=== PATIENT | female | born 1940 | race Caucasian/White ===

== ENCOUNTER 2024-03-07 12:36 | Outpatient (AMB) | payer MEDICARE, SELFPAY ==
--- NOTE | 2024-03-07 13:24 | A.OFFVIS_ITS ---
Vital Signs 03/07/24 13:25 Height 5 ft 2 in Weight 126 lb BMI 23.0 BP 118/64 Blood Pressure Location Lt brachial Position Sitting Pulse 64 Pulse Source Pulse Oximeter Pulse Oximetry (%) 97 Oxygen Delivery Method Room Air Intake Visit Reasons: Follow up Intake Note: Patient presents for follow up on osteoarthritis. Accompanied by: Health Care Proxy Allergies Penicillins Allergy (Intermediate, Verified 03/07/24 13:30) Anaphylaxis NSAIDS (Non-Steroidal Anti-Inflamma Allergy (Mild, Verified 03/07/24 13:30) rasie blood pressure HPI HPI Follow up: Details: Last week patient had a fall in her home. She fell on her left side. Her face did hit the ground. She has a bruise on her chin. She continues to have lower back pain and left-sided hip pain worse than right side. She has difficulty walking. In July she had an ER admission after fall and a period of confusion. She was found to have a UTI. She was discharged to rehab and then was readmitted. Eventually she went to rehab again where she received physical therapy, OT and discharge to home with services. She received home physical therapy for 6 weeks. She feels weak. She has a hard time ambulating with walker. She requires assistance when getting up from seated position. She is unable to get up by herself. She continues to have chronic left shoulder pain with limited range of motion. She has history of rotator cuff tendon tear. She went to physical therapy in the past. She has not been consistent with doing exercises at home. Review of Systems Const All systems reviewed & are unremarkable except as noted in HPI and below Physical Exam Vital Signs: Last Vital Signs Pulse 64 03/07/24 13:25 BP 118/64 03/07/24 13:25 Pulse Ox 97 03/07/24 13:25 Oxygen Delivery Method Room Air 03/07/24 13:25 BMI result Body Mass Index 23.0 Const Other: General: Comfortable Skin: No lesions seen MSK: Tender to palpate left shoulder. Abduction of left shoulder 30 degrees. She has limited internal external rotation both actively and passively. Tender to palpate left lower paraspinal muscles. No lumbar spinous process tenderness. Limited lumbar flexion. Tenderness along right knee joint line. Crepitus palpated right knee. Knee flexion is limited to 60 degrees. She has limited external rotation of bilateral hips. Assessment & Plan Assessment & Plan (1) Frequent falls: Comment: She recently had a fall a week ago landing on her left side. She continues to have lower back pain. Myofascial strain is contributing. We will obtain x-rays of her L-spine and pelvis to ensure there is no fracture. I recommended physical therapy for strengthening. Code(s): R29.6 - Repeated falls Category: Medical Plan: X-rays L-spine and pelvis ordered. Patient prefers to have x-rays done locally PT ordered. Patient prefers to have physical therapy at [facility] and [place], [place] Apply heat to back at least twice a day Continue to use Tylenol as needed Apply lidocaine patch daily Return to clinic in 3 months (2) Low back pain: Comment: Acute on chronic. Myofascial strain is contributing. Code(s): M54.50 - Low back pain, unspecified Category: Medical Qualifiers: Back pain laterality: bilateral Chronicity: acute Sciatica presence: without sciatica Qualified Code(s): M54.50 - Low back pain, unspecified Plan: See above (3) Left shoulder pain: Comment: With history of rotator cuff tendinopathy and limited range of motion. I we will further workup to determine the extent of osteoarthritis contributing to limited range of motion and shoulder pain. She has agreed to do physical therapy. Code(s): M25.512 - Pain in left shoulder Category: Medical Qualifiers: Chronicity: chronic Qualified Code(s): M25.512 - Pain in left shoulder; G89.29 - Other chronic pain Plan: X-ray left shoulder ordered. Patient prefers to have x-rays done locally Physical therapy ordered. Patient prefers to have physical therapy in [place], [place] at [facility]. Return to clinic in 3 months Orders: Orders XR lumbar spine 2-3V Today M54.50 - Low back pain, unspecified, R29.6 - Repeated falls PT Evaluation and Treatment Today M54.50 - Low back pain, unspecified, R29.6 - Repeated falls XR shoulder LT min 2V Today M25.512 - Pain in left shoulder XR knee RT 2V Today M17.0 - Bilateral primary osteoarthritis of knee XR pelvis 1-2V Today M54.50 - Low back pain, unspecified Medications: New leg brace (Knee Support Brace) As directed Right knee hinged brace Dx: osteoarthritis 1 ea 0RF Coding Level of Care Code Est Pt Level 4 (50577) Complex EM visit Add On G2211 Diagnoses Frequent falls R29.6 Acute bilateral low back pain without sciatica M54.50 Back pain laterality: bilateral Chronicity: acute Sciatica presence: without sciatica Chronic left shoulder pain M25.512; G89.29 Chronicity: chronic
[2024-03-07 13:25] VITALS: BP 118/64; PULSE 64; O2SAT 97; BMI 23.0
== END 2024-03-07 13:47 | disposition home or self-care (01) ==
PROVIDERS: PCP Internal Medicine; Visit Provider Internal Medicine Rheumatology
DX: R29.6 Repeated falls (principal); M54.50 Low back pain, unspecified; M25.512 Pain in left shoulder; G89.29 Other chronic pain
CPT/HCPCS: 99214; G2211

== ENCOUNTER → 2024-03-07 12:36 | Outpatient (BNVA) | payer MEDICARE, SELFPAY | PROVIDERS: PCP Internal Medicine; Visit Provider Internal Medicine Rheumatology | DX: R29.6 Repeated falls (principal); M25.512 Pain in left shoulder; M54.50 Low back pain, unspecified; G89.29 Other chronic pain | CPT/HCPCS: 99212 ==

== ENCOUNTER 2024-06-06 13:04 | Outpatient (AMB) | payer MEDICARE, SELFPAY ==
--- NOTE | 2024-06-06 13:08 | MHC.OFFVIS ---
Vital Signs 06/06/24 13:17 Height 5 ft 2 in BP 120/60 Blood Pressure Location Lt brachial Position Sitting Pulse 63 Pulse Source Pulse Oximeter Pulse Oximetry (%) 98 Oxygen Delivery Method Room Air Intake Visit Reasons: 3 mo follow up Intake Note: Patient presents today for follow up on arthralgia today. Accompanied by: sister in law Allergies Penicillins Allergy (Intermediate, Verified 06/06/24 13:16) Anaphylaxis NSAIDS (Non-Steroidal Anti-Inflamma Allergy (Mild, Verified 06/06/24 13:16) rasie blood pressure HPI HPI 3 mo follow up: Details: left elbow pain started a month ago. Worse after sleeping on left side. She feels weaker. She is having a hard time lifting her legs when walking. She is very tired. She is waking up every hour to urinate. When she is tired it affects her speech. History of lacunar infarcts. In the past she saw urologist KALA who recommended 3 options of medications but patient did not pursue any of them. She continues to have left shoulder pain and back pain. She does exercises with her upper extremities with weights every day. Review of Systems Const All systems reviewed & are unremarkable except as noted in HPI and below Physical Exam Vital Signs: Last Vital Signs Pulse 63 06/06/24 13:17 BP 120/60 06/06/24 13:17 Pulse Ox 98 06/06/24 13:17 Oxygen Delivery Method Room Air 06/06/24 13:17 Const Other: General: Comfortable Skin: No lesions seen MSK: Tender to palpate left shoulder. Abduction of left shoulder 30 degrees actively. Passive abduction of left shoulder is 45 degrees. She has limited internal external rotation both actively and passively. Tender to palpate left lateral elbow. No tender to palpate lateral epicondyle or medial epicondyle. No olecranon bursitis present. No elbow effusion present. Normal range of motion of left elbow. Assessment & Plan Assessment & Plan (1) Frequent falls: Comment: She continues to have lower back pain. On exam from last visit she had paraspinal muscle strain contributing. She has not done x-rays ordered last visit Code(s): R29.6 - Repeated falls Category: Medical Plan: X-rays L-spine and pelvis ordered last visit. Patient prefers to have x-rays done locally. I recommend that she have x-rays done after this visit. Patient agrees with plan. Continue physical therapy Apply heat to back at least twice a day Continue to use Tylenol as needed. History of baseline transaminitis being monitored by PCP per patient. Apply lidocaine patch daily Patient had concerns that were raised by physical therapy about the possibility of her having Parkinson's disease. I recommended that she discuss the weakness that she is experiencing with PCP with consideration of reordering brain imaging and the possibility of consultation with Neurology with movement disorder specialist. She would also benefit from geriatric consultation. Uncontrolled urinary incontinence (nocturia frequency Q 1 hourly at night) is contributing to fatigue, which is a risk factor for her falling as she feels very sleepy during the day. I recommend urogynecology evaluation. She will further discuss with PCP. Return to clinic in 3 months (2) Left shoulder pain: Comment: With history of rotator cuff tendinopathy and limited range of motion. She has a left frozen shoulder. Code(s): M25.512 - Pain in left shoulder Category: Medical Qualifiers: Chronicity: chronic Qualified Code(s): M25.512 - Pain in left shoulder; G89.29 - Other chronic pain Plan: X-ray left shoulder ordered last visit. Patient prefers to have x-rays done locally. I encouraged her to have x-rays done after this visit Continue exercises at home daily. In the past she had exercise home program with bands. I recommend that she start exercising with bands to try to improve her range of motion. If she continues to have limited range of motion next visit, I will treat with cortisone injection Return to clinic in 3 months (3) Elbow pain, left: Comment: Onset 1 month ago occurring daily, worse when she sleeps on left side. Normal range of motion. Discussed conservative management Code(s): M25.522 - Pain in left elbow Category: Medical Plan: Obtaining baseline LFTs and creatinine. I recommend that she try diclofenac gel 1% applied to affected area every 4-6 hours. She has history of transaminitis. We discussed the rare risk of diclofenac gel increasing liver enzymes. I will monitor her LFTs while she uses diclofenac gel. We discussed risks and benefits of diclofenac gel including the low risk of it contributing to hypertension due to low risk of systemic absorption. Return to clinic in 3 months Orders: Orders Creatinine Today G89.29 - Other chronic pain, M25.512 - Pain in left shoulder Liver Panel Today G89.29 - Other chronic pain, M25.512 - Pain in left shoulder Medications: New diclofenac sodium 1% apply to affected area every 4-6 hours PRN pain 2 grams topical QID PRN 100 grams 2RF pain Coding Level of Care Code Est Pt Level 4 (15131) Complex EM visit Add On G2211 Diagnoses Frequent falls R29.6 Chronic left shoulder pain M25.512; G89.29 Chronicity: chronic Elbow pain, left M25.522 Time Spent (min) 30
[2024-06-06 13:17] VITALS: BP 120/60; PULSE 63; O2SAT 98
--- OUTSIDE RECORDS SUMMARY | 2024-06-06 15:22 | XMS_ITS | Patient Health Record ---
Author Organization [facility] Address [address] [facility] [address] [place] [address] Care Team Providers Care Cloth Sander Name Role Phone Diogenes Medeiros Primary Care Provider Unavailabl e Allergies Allergen (clinical drug ingredient) Drug/Non Drug Allergy documented on EMR Reaction Allergy Type Onset Date Status amlodipine / atorvastatin amLODIPine-Atorvastat in Unknown Drug Allergy Active celecoxib CeleBREX Unknown Drug Allergy Active atorvastatin Lipitor Unknown Drug Allergy Acti ve lisinopril Lisinopril Unknown Drug Allergy Activ e Substance with 5-hvffqwu-8-methylglutar yl-coenzyme A reductase inhibitor mechanism of action (substance) Statins Unknown Drug Allergy Active metoprolol Metoprolol Unknown Drug Allergy Activ e Penicillin Unknown Drug Allergy Active verapamil Verapamil Unknown Drug Allergy Active Reason For Referral No Information Medications Medication SIG (Take, Route, Frequency, Duration) Notes Start Date End Date Status Carvedilol 3.125 MG 1 tablet with food Orally Twice a day Active Aspirin 81 81 MG 1 tablet Orally Once a day Active Scopolamine 1 MG/3DAYS 1 patch to skin behind the ear as needed Transdermal Not-Taking Citracal + D Active Pravastatin Sodium 20 MG 1 tablet Orally Once a day Not-Taking Fish Oil 500 MG 1 capsule Orally Twice a day Active hydroCHLOROthiazide 12.5 MG 1 tablet in the morning Orally Once a day Active ICaps Areds 2 Active Levothyroxine Sodium 75 MCG 1 tablet in the morning on an empty stomach Orally Once a day Active Losartan Potassium 25 MG 1 tablet Orally Once a day Active Multivitamin - 1 tablet Orally Once a day Active Nitroglycerin 0.4 MG as directed Sublingual Active Problems Problem Type SNOMED Code ICD Code Onset Dates Problem Status W/U Status Risk Notes Problem [id number] Hallux valgus (acquired), right foot (M20.11) Active confirmed Problem [id number] Hallux valgus (acquired), left foot (M20.12) Active confirmed Problem [id number] Acquired left foot drop (M21.372) Active confirmed Problem 54491270 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 Plan Of Treatment No Information Insurance Providers Payer Name Payer Address Payer Phone Subscriber Number Group Number Insured Name Patient Relationship to Insured Coverage Start Date Coverage End Date Medicare of [place] [address] [place] [phone] [id number] Talita Torrez Self - patient is the insured [employer] [address] [place] [address] [phone] [id number] Talita Torrez Self - patient is the insured Medical (General) History Medical History History ICD Code Bilateral Cataracts Breast Calcification Coronary Artery Disease Degenerative Disc Disease Absorptiometry Ectopic Atrial Beats Ectopic Beats Kaye's Disease w/ Hypothyroidism Hypertension Lacunar Infarction 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
--- OUTSIDE RECORDS SUMMARY | 2024-06-06 15:22 | XMS_ITS | Clinical Summary ---
Author Organization [facility] [address] [facility] Address [address] [place] [address] Phone Care Team Providers Care Freight Associate Name Role Phone Diogenes Medeiros MD Primary Care Provider Allergies No known active allergies Active Problems Problem Noted Date Diagnosed Date Gastritis 02/21/2024 Social History Tobacco Use Types Packs/Day Years Used Date Smoking Tobacco: Never Assessed Comments Unknown Sex and Gender Information Value Date Recorded Sex Assigned at Not on file Legal Sex Female 3:40 PM EDT Gender Identity Not on file Sexual Orientation Not on file Plan of Treatment Health Maintenance Due Date Last Done Comments DTaP,Tdap,and Td Vaccines (1 - Tdap) [birth year]09/1959 Pneumococcal Vaccine: 50+ Ye ars (1 of 1 - PCV) 1990 Zoster Vaccines (1 of 2) 1990 RSV Immunization Adult Patie nts (1 - 1-dose 75+ series) 12/09/2015 COVID-19 Vaccine ( - 2023-2 5 season) 2023 Depression Screening 11/29/2023 Falls Risk Assessment 11/29/2023 Medicare Annual Wellness Visit 11/29/2023 Osteoporosis Screening (Bone Density Screening) 11/29/2023 Social Influencers of Health Screening 11/29/2023 Influenza Vaccine (Season Ended) 2024 HIB Vaccines Aged Out No longer eligi ble based on patient's age to complete this topic HPV Vaccines Aged Out No longer eligi ble based on patient's age to complete this topic Hepatitis A Vaccines Aged Out No long er eligible based on patient's age to complete this topic Hepatitis B Vaccines Aged Out No long er eligible based on patient's age to complete this topic IPV Vaccines Aged Out No longer eligi ble based on patient's age to complete this topic MMR Vaccines Aged Out No longer eligi ble based on patient's age to complete this topic Meningococcal ACWY Vaccine Aged Out N o longer eligible based on patient's age to complete this topic Meningococcal B Vaccine Aged Out No l onger eligible based on patient's age to complete this topic RSV Immunization Patients Un carolyn 20 months Aged Out No longer eligible b ased on patient's age to complete this topic Varicella Vaccines Aged Out No longer eligible based on patient's age to complete this topic Insurance MEDICARE Care Teams Freight Associate Relationship Specialty Start Date End Date Diogenes Medeiros MD [address] [place] [id number] PCP - General Internal Medicine 02/19/24
--- OUTSIDE RECORDS SUMMARY | 2024-06-06 15:22 | XMS_ITS | Encounter Summary ---
Author Organization [facility] Address [address] [place] [phone] Care Team Providers Care Casket Liner Name Role Phone Fitz Cruz MD Primary Care Provider [phone] Encounter Details Date Type Department Care Team (Late st Contact Info) Description 05/06/2014 Scanned Document [facility] [address] [place] [address] Sascha Gerber MD [address] [place] [phone] Social History Tobacco Use Types Packs/Day Years Used Date Smoking Tobacco: Former Alcohol Use Standard Drinks/Week Comments No 0 (1 standard drink = 0.6 oz pur e alcohol) Comments Unknown Sex and Gender Information Value Date Recorded Sex Assigned at Not on file Legal Sex Female 2:43 AM EDT Gender Identity Not on file Sexual Orientation Not on file documented as of this encounter Plan of Treatment Not on file documented as of this encounter Procedures Procedure Name Priority Date/Time Associated Diagnosis Comments COLONOSCOPY (IMAGES) Routine 04/07/2014 documented in this encounter Results * Colonoscopy (04/07/2014) Sascha Gerber MD GI PROCEDURE ORDERABLES Final Re sult documented in this encounter Visit Diagnoses Not on filedocumented in this encounter Care Teams Casket Liner Relationship Specialty Start Date End Date Fitz Cruz MD [address] [place] [address] [place] [address] PCP - General Internal Medicine 11/04/16 04/09/17 documented as of this encounter
--- OUTSIDE RECORDS SUMMARY | 2024-06-06 15:22 | XMS_ITS | Encounter Summary ---
Author Organization [facility] Address [address] [place] [phone] Care Team Providers Care Agricultural Research Engineer Name Role Phone Fitz Cruz MD Primary Care Provider [phone] Encounter Details Date Type Department Care Team (Late st Contact Info) Description 01/17/2017 Scanned Document [facility]. [address] [address] External, Provider Social History Tobacco Use Types Packs/Day Years Used Date Smoking Tobacco: Former Smokeless Tobacco: Never Alcohol Use Standard Drinks/Week Comments No 0 (1 standard drink = 0.6 oz pur e alcohol) Comments No Sex and Gender Information Value Date Recorded Sex Assigned at Not on file Legal Sex Female 2:43 AM EDT Gender Identity Not on file Sexual Orientation Not on file documented as of this encounter Plan of Treatment Not on file documented as of this encounter Visit Diagnoses Not on filedocumented in this encounter Care Teams Agricultural Research Engineer Relationship Specialty Start Date End Date Fitz Cruz MD [address] [place] [phone] PCP - General Internal Medicine 11/04/16 04/09/17 documented as of this encounter
--- OUTSIDE RECORDS SUMMARY | 2024-06-06 15:22 | XMS_ITS | Clinical Summary ---
Author Organization [address] Address [address] [place] [phone] Phone Care Team Providers Care Sales Support Consultant Name Role Phone Unavailable Primary Care Provider Unavailabl e Allergies Active Allergy Reactions Criticality Noted Date Comments Amlodipine High 11/13/2013 Retain fluids Celecoxib 12/10/2012 Lisinopril 01/22/2016 Metoprolol Tartrate Nausea Low 08/04/2013 Nsaids (Non-Steroidal Anti-Inflammatory Drug) 12/10/2012 Penicillins Anaphylaxis High 07/06/2012 Stljveu-Mrk-Aeu Reductase Inhibitors Medium 11/13/2013 Muscle pain-cramping Medications aspirin 81 MG EC tablet Take 81 mg by mouth daily. Active acetaminophen (TYLENOL) 500 MG tablet Take 1,000 mg by mouth 2 (two) times daily as needed (tendonitis pain). Active fish oil-omega-3 fatty acids 1,000 mg capsule Take 1 g by mouth daily. Active PYRIDOXINE HCL (VITAMIN B-6 ORAL) Take 1 tablet by mouth daily. Active multivitamin (MULTIVITAMIN) tablet Take 1 tablet by mouth daily. Active acetaminophen (TYLENOL 8 HOUR) 650 MG TbSR Take by mouth. prn Active ezetimibe (ZETIA) 10 mg tablet Take 1 tablet (10 mg total) by mouth daily. 90 tablet 3 6 Active levothyroxine (SYNTHROID, LEVOTHROID) 75 MCG tabletIndications:H ypothyroid Take 1 tablet (75 mcg total) by mouth daily. 90 tablet 2 7 Active rosuvastatin (CRESTOR) 10 MG tabletIndications:H yperlipidemia, unspecified hyperlipidemia type Take 10 mg once a week 90 tablet 3 7 Active verapamil (VERELAN PM) 180 MG 24 hr capsule Take 1 capsule (180 mg total) by mouth nightly.. 30 capsule 2 7 Active hydroCHLOROthiazide (HYDRODIURIL) 12.5 MG tablet Take 1 tablet (12.5 mg total) by mouth daily.. 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 Syncope and collapse 09/25/2015 Hyperlipidemia 01/15/2014 Overview (01/22/2016): Severe myalgias with atorvastatin, pravastatin, simvastatin and lovastatin HTN (hypertension) 08/19/2013 Overview (09/25/2015): 08/05/2013 Pharm MPI: no ischemia; normal LV function 08/06/2013 Echo: normal LV function, no valvular disease Resolved Problems Problem Noted Date Diagnosed Date Resolved Date SOB (shortness of breath) 08/04/2013 Elevated troponin 08/04/2013 09/25/2015 Immunizations Name Administration Dates Next Due Influenza, high-dose, split virus, trivalent,(65Yr+),injectable, preservative free 12/18/2015 Pneumococcal conjugate PCV 13 11/26/2014 Pneumococcal polysaccharide PPSV23 01/15/2014 Tdap 01/26/2015 Family History Medical History Relation Name Comments Heart disease Father Stroke Maternal Aunt Heart disease Maternal Cousin CO Hypertension Mother Stroke Mother Cancer Paternal Grandmother breast cancer Hypertension Sister 1 Hypertension Sister 2 Relation Name Status Comments Father (Age 64) CO Maternal Aunt Maternal Cousin Alive Mother (Age 88) Paternal Grandmother Sister 1 Alive Sister 2 Alive Social History Tobacco Use Types Packs/Day Years Used Date Smoking Tobacco: Former Smokeless Tobacco: Never Alcohol Use Standard Drinks/Week Comments No 0 (1 standard drink = 0.6 oz pur e alcohol) Comments No Sex and Gender Information Value Date Recorded Sex Assigned at Not on file Legal Sex Female 2:43 AM EDT Gender Identity Not on file Sexual Orientation Not on file Last Filed Vital Signs Vital Sign Reading Time Taken Comments Blood Pressure 164/86 11/28/2016 12:27 PM EDT Pulse 92 11/28/2016 12:27 PM EDT Temperature 36.9 ??C (98.4 ??F) 12/18/2015 9:02 AM ED T Respiratory Rate 20 01/22/2016 10:51 AM EST Oxygen Saturation 97% 12/18/2015 9:02 AM EDT Inhaled Oxygen Concentration - - Weight 76.7 kg (169 lb) 11/28/2016 12:25 PM EDT Height 157.5 cm (5' 2 ) 11/28/2016 12:25 PM EDT Body Mass Index 30.91 11/28/2016 12:25 PM EDT Plan of Treatment Health Maintenance Due Date Last Done Comments HIV screening 1953 Shingles vaccine (Shingrix) (1 of 2 - Shingrix (RZV) 2 Dose Standard Series) 1990 RSV Immunization (1 - 1-dose 75+ series) 12/09/2015 Lipid disorder screening 06/30/2017 017, 01/08/2016, 12/04/2015, Additional history exists Diabetes screening 07/16/2018 07/17/2015, 0 06/27/2015, 03/07/2014, Additional history exists Covid-19 vaccine series ( season) 2023 Influenza vaccine 10/14/2024 12/18/2015, (Patient declined) Tetanus adult (Td q 10,TDAP once) 01/26/2025 01/26/2015 Osteoporosis screening (bone density) Addressed 01/17/2014 Overridden with the intention of not completing the topic Pneumococcal Vaccine (50+ years) Completed 11/26/2014, 01/15/2014 Breast cancer screening Discontinued 03/16/2015, 01/17 Cervical cancer screening Discontinued Meningococcal Vaccine Aged Out No pretty jenna eligible based on patient's age to complete this topic Procedures Procedure Name Priority Date/Time Associated Diagnosis Comments LIPID PANEL Routine 06/30/2016 9:35 AM EDT Hyperlipidemia, unspecified hyperlipidemia type COMPREHENSIVE METABOLIC PANEL STAT 07/17/2015 1:57 PM EDT from Last 3 Months or Most Recently Relevant to Health Maintenance Results * (ABNORMAL) Lipid panel (06/30/2016 9:35 AM EDT) [facility] Cholesterol 264(H) See Comment mg/dL 06/30/2016 12:46 PM EDT [facility] Comment: Total Cholesterol (mg/dL) ?Adults (>18 years) ? Children (<18 years) Desirable ?<200 ? <170 Borderline-High ?200-239 ?170-199 High ? >=240 ?>=200 ? HDL 45 >=40 mg/dL 06/30/2016 12:46 PM EDT [facility] Triglycerides 284(H) See Comment mg/dL 06/30/2016 12:46 PM EDT [facility] Comment: Triglycerides (mg/dL) ?Adults (>18 years) ? Children (<18 years) Desirable ?<150 ? Not Established Borderline-High ?150-199 ?Not Established High ? 200-499 ?Not Established ?? Chol/HDL Ratio 5.9(H) <=5 06/30/2016 [facility] LDL Calculated 162(H) See Comment mg/dL 06/30/2016 12:46 PM [facility] Comment: LDL Cholesterol (mg/dL) ?Adults (>18 years) ? Children (<18 years) Desirable ?<100 ? <110 Above Desirable ?100-129 ?Not Established Borderline-High ?130-159 ?110- 129 High ? 160-189 ?>=130 Very High? >=190 ? Not Established Blood specimen (specimen) Venipuncture / Unknown 06/30/2016 9:35 AM EDT 06/30/2016 9:35 AM EDT us Abdon Lepe MD LAB BLOOD ORDERABLES Final Result Performing Organization Address [facility]/State/[facility] Co de Phone Number [facility] [address] [place] [address], [facility] [phone] * (ABNORMAL) Comprehensive metabolic panel (07/17/2015 1:57 PM EDT) Glucose 132(H) 70 - 100 mg/dL [facility] BUN 18 7 - 20 mg/dL [facility] Creatinine 0.9 0.5 - 1.2 mg/dL [facility] Anion Gap 18(H) 7 - 16 [facility] CO2 23.5 22.0 - 30.0 mmol/L [facility] Chloride 95(L) 96 - 106 mmol/L [facility] Sodium 136 135 - 145 mmol/L [facility] Potassium 4.6 3.3 - 5.0 mmol/L [facility] Calcium 9.9 8.8 - 10.2 mg/dL [facility] Total Protein 7.1 6.0 - 8.3 g/dL [facility] Albumin 3.8 3.5 - 5.0 g/dL [facility] Globulin 3.3 2.3 - 3.5 g/dL [facility] A/G Ratio 1.2 1.0 - 2.2 [facility] Aspartate Aminotransferase (AST) 22 0 - 34 U/L [facility] Alanine Aminotransferase (ALT) 16 0 - 34 U/L [facility] Alkaline Phosphatase 77 30 - 130 U/L [facility] Total Bilirubin 0.28 <1.20 mg/dL [facility] Blood specimen (specimen) 07/17/2015 1:57 PM EDT Ines Benjamin MD LAB BLOOD ORDERABLES Final R esult [facility] [address] [place] [phone] from Last 3 Months or Most Recently Relevant to Health Maintenance Insurance MEDICARE [facility] MEDICARE [facility] MEDICARE [facility] MEDICARE [facility]
--- OUTSIDE RECORDS SUMMARY | 2024-06-06 15:23 | XMS_ITS | Patient Health Record ---
Author Organization [facility] Address [address] [place] [address] Care Team Providers Care Senior Revenue Accountant Name Role Phone JV MURILLO M.D. Primary Care Provider U hangsofiaLucita Moody Unavailable [phone] Allergies Allergen (clinical drug ingredient) Drug/Non Drug Allergy documented on EMR Reaction Allergy Type Onset Date Status amlodipine Amlodipine Besylate Swelling Drug Allergy Active Metoprolol & Diet Manage Prod Nausea Drug Allergy Active Penicillin Unknown Drug Allergy Active Substance with 7-ldycejs-3-methylgl utaryl-coenzyme A reductase inhibitor mechanism of action (substance) Statins Muscle Weakness Drug Allergy Active Reason For Referral No Information Medications Medication SIG (Take, Route, Frequency, Duration) Notes Start Date End Date Status Synthroid 75 MCG 1 Orally daily Micah-MJ 01/26/2012 Active Carvedilol 3.125 MG Orally Active Low-Dose Aspirin Act shanelle hydroCHLOROthiazide 12.5 MG Orally Active Losartan Potassium 50 MG Orally Active Social History Sexual History Question Answer Notes Had sex in the past 12 months (vaginal, oral, or anal)? No Problems Problem Type SNOMED Code ICD Code Onset Dates Problem Status W/U Status Risk Notes Problem Age-related osteoporosis (347398063) Age-related osteoporosis without current pathological fracture (M81.0) Active confirmed Problem Abnormal findings on diagnostic imaging of breast (074143073) Other abnormal and inconclusive findings on diagnostic imaging of breast (R92.8) Active confirmed Problem Hyperlipidemia (89572095) Other and unspecified hyperlipidemia (272.4) Active confirmed Major Problem Benign essential hypertension (0837706) Essential hypertension, benign (401.1) Active confirmed Major Problem Menopausal symptom (15421264) Symptomatic menopausal or female climacteric states (627.2) Active confirmed Major Problem Gynecological examination normal (118025151098721) Routine gynecological examination (V72.31) Active confirmed Major Problem Screening for malignant neoplasm of colon (642463182) Special screening for malignant neoplasms, colon (V76.51) Active confirmed Major Plan Of Treatment Pending Test Test Name Order Date 25OH VITAMIN D 06/26/2018 COMPREHENSIVE METABOLIC PANEL 06/26/2018 N-TELOPEPTIDE CROSS 06/26/2018 PTH, INTACT 06/26/2018 THIN PREP,HPV,YENI IF HPV+ (>29YR)(DIAG) 07/30/2018 TSH 06/26/2018 BONE DENSITY 07/27/2016 Insurance Providers Payer Name Payer Address Payer Phone Subscriber Number Group Number Insured Name Patient Relationship to Insured Coverage Start Date Coverage End Date MEDICARE [address] [facility] [place] [id number] GRETTA GRIFFITHS Self - patient is the insured MEDEX [address] [place] [address] [id number] GRETTA GRIFFITHS Self - patient is the insured Medical (General) History Medical History History ICD Code Hyperlipidemia, unspecified E78.5 Essential (primary) hypertension I10 Menopausal and female climacteric states N95.1 Age-related osteoporosis without current pathological fracture M81.0 Other abnormal and inconclusive findings on diagnostic imaging of breast R92.8 Disorder of bone density and structure, unspecified M85.9 Pelvic and perineal pain R10.2 Other signs and symptoms in breast N64.5 9 Surgical History Surgery Date(Month/Year) Colonoscopy Tonsillectomy Dental Implant 2017 MOS procedure Lt Hand - squamous cell re moved Hospitalization History Reason Date(Month/Year) 1 Vaginal Delivery See Surgical Hx
--- OUTSIDE RECORDS SUMMARY | 2024-06-06 15:23 | XMS_ITS | Encounter Summary ---
Author Organization [facility] Address [address] [place] [phone] Care Team Providers Care Ticket Dispenser Changer Name Role Phone Fitz Cruz MD Primary Care Provider [phone] Encounter Details Date Type Department Care Team (Late st Contact Info) Description 09/15/2015 Scanned Document Lab for [facility] [address] [place] [address] Adm/Consult, Hospitalist [address] [place] [address] Social History Tobacco Use Types Packs/Day Years [...] on filedocumented in this encounter Care Teams Ticket Dispenser Changer Relationship Specialty Start Date End Date Fitz Cruz MD 5 [facility] [address] [place] [phone] PCP - General Internal Medicine 11/04/16 04/09/17 documented as of this encounter
--- OUTSIDE RECORDS SUMMARY | 2024-06-06 15:23 | XMS_ITS | Encounter Summary ---
Author Organization [facility] Address [address] [place] [phone] Care Team Providers Care Rental Sales Associate Name Role Phone Fitz Cruz MD Primary Care Provider [phone] Reason for Referral * Imaging (Routine) - Closed Specialty Diagnoses / Procedures Referred By Contac t Referred To Contact Diagnostic Radiology Procedures CT Head wo IV Contrast [facility] [address] [address] Phone: tel: fax: Referral ID Status Reason Start Date Expiration Date Visits Re quested Visits Authorized [id number] Closed 09/17/2015 09/16/2016 1 1 Encounter Details Date Type Department Care Team (Late st Contact Info) Description 09/17/2015 Scanned Document [facility] [address] [address] ProviderBritni . Social History Tobacco Use Types Packs/Day Years [...] Procedure Name Priority Date/Time Associated Diagnosis Comments CT HEAD WO IV CONTRAST Routine 09/14/2015 XR CHEST PA AND LATERAL Routine 09/14/2015 NE CARDIAC STRESS TST,TRACING ONLY Routine 09/14/2015 BASIC METABOLIC PANEL Routine 09/14/2015 documented in this encounter Results * NE CARDIAC STRESS TST,TRACING ONLY (09/14/2015) Historical Provider [place] CARDIOVASCULAR SYSTEM SER VICES Final Result * Basic metabolic panel (09/14/2015) Blood specimen (specimen) Historical Provider LAB BLOOD ORDERABLES Final R esult [facility] * XR Chest PA and Lateral (09/14/2015) Anatomical Region Laterality Modality Chest Digital Radiogra phy [facility] Provider IMG DIAGNOSTIC IMAGING ORDER PAUL Final Result * CT Head wo IV Contrast (09/14/2015) Anatomical Region Laterality Modality Head, Ortho Head Computed Tomogr aphy Historical Provider IMG CT ORDERABLES Final Resu lt documented in this encounter Visit Diagnoses Not on filedocumented in this encounter Care Teams Rental Sales Associate Relationship Specialty Start Date End Date Fitz Cruz MD 5 [facility] [address] [place] [phone] PCP - General Internal Medicine 11/04/16 04/09/17 documented as of this encounter
--- OUTSIDE RECORDS SUMMARY | 2024-06-06 15:23 | XMS_ITS | Encounter Summary ---
Author Organization [facility] Address [address] [place] [phone] Care Team Providers Care Address Change Clerk Name Role Phone Fitz Cruz MD Primary Care Provider [phone] Encounter Details Date Type Department Care Team (Late st Contact Info) Description 01/21/2014 Scanned Document [facility] [address] [place] [phone] Priyanka Ontiveros MD [address] [place] [address] [place] [address] Social History Tobacco Use Types Packs/Day Years [...] Procedure Name Priority Date/Time Associated Diagnosis Comments BASIC METABOLIC PANEL Routine 01/13/2014 documented in this encounter Results * Basic metabolic panel (01/13/2014) Blood specimen (specimen) us Priyanka Ontiveros MD LAB BLOOD ORDERABLES Fin al Result [facility] [place], [place], [facility] documented in this encounter Visit Diagnoses Not on filedocumented in this encounter Care Teams Address Change Clerk Relationship Specialty Start Date End Date Fitz Cruz MD 5 [facility] [address] [place] [phone] PCP - General Internal Medicine 11/04/16 04/09/17 documented as of this encounter
--- OUTSIDE RECORDS SUMMARY | 2024-06-06 15:23 | XMS_ITS | Encounter Summary ---
Author Organization [facility] Address [address] [place] [phone] Care Team Providers Care It Support Analyst Name Role Phone Fitz Cruz MD Primary Care Provider [phone] Encounter Details Date Type Department Care Team (Late st Contact Info) Description 09/14/2015 Scanned Document Lab for [facility] [address] [place] [address] Adm/Consult, Hospitalist [address] [place] [phone] Social History Tobacco Use Types Packs/Day Years [...] on filedocumented in this encounter Care Teams It Support Analyst Relationship Specialty Start Date End Date Fitz Cruz MD 5 [facility] [address] [place] [phone] PCP - General Internal Medicine 11/04/16 04/09/17 documented as of this encounter
== END 2024-06-06 14:10 | disposition home or self-care (01) ==
LOC: HO.RHES 13:05
PROVIDERS: PCP Internal Medicine; Visit Provider Internal Medicine Rheumatology
DX: R29.6 Repeated falls (principal); M25.512 Pain in left shoulder; G89.29 Other chronic pain; M25.522 Pain in left elbow
CPT/HCPCS: 99214; G2211

== ENCOUNTER 2024-06-06 13:04 | Outpatient (REF) | payer MEDICARE, SELFPAY ==
--- OUTSIDE RECORDS SUMMARY | 2024-06-06 16:58 | XMS_ITS | Clinical Summary ---
Author Organization [facility] [address] [facility] Address [address] [place] [address] Phone Care Team Providers Care Mattress Filling Machine Tender Name Role Phone Diogenes Medeiros MD Primary [...] complete this topic Insurance MEDICARE Care Teams Mattress Filling Machine Tender Relationship Specialty Start Date End Date Diogenes Medeiros MD [address] [place] [phone] PCP - General Internal Medicine 02/19/24
--- OUTSIDE RECORDS SUMMARY | 2024-06-06 16:58 | XMS_ITS | Encounter Summary ---
Author Organization [facility] Address [address] [place] [phone] Care Team Providers Care Photovoltaic Installer Name Role Phone Fitz Cruz MD Primary Care Provider [phone] Encounter Details Date Type Department Care Team (Late st Contact Info) Description 09/15/2015 Scanned Document Lab for [facility] [address] [place] [address] Adm/Consult, Hospitalist [address] [place] [address] Social History Tobacco Use Types Packs/Day Years [...] on filedocumented in this encounter Care Teams Photovoltaic Installer Relationship Specialty Start Date End Date Fitz Cruz MD 5 [facility] [address] [place] [phone] PCP - General Internal Medicine 11/04/16 04/09/17 documented as of this encounter
--- OUTSIDE RECORDS SUMMARY | 2024-06-06 16:58 | XMS_ITS | Encounter Summary ---
Author Organization [facility] Address [address] [place] [phone] Care Team Providers Care Buffer Nickel Name Role Phone Fitz Cruz MD Primary Care Provider [phone] Encounter Details Date Type Department Care Team (Late st Contact Info) Description 05/06/2014 Scanned Document [facility] [address] [place] [address] Sascha Gerber MD [address] [place] [phone] Social History Tobacco Use Types Packs/Day Years [...] on filedocumented in this encounter Care Teams Buffer Nickel Relationship Specialty Start Date End Date Fitz Cruz MD [address] [place] [address] [address] [place] [phone] PCP - General Internal Medicine 11/04/16 04/09/17 documented as of this encounter
--- OUTSIDE RECORDS SUMMARY | 2024-06-06 16:58 | XMS_ITS | Encounter Summary ---
Author Organization [facility] Address [address] [place] [phone] Care Team Providers Care Apparatus Lineman Name Role Phone Fitz Cruz MD Primary Care Provider [phone] Encounter Details Date Type Department Care Team (Late st Contact Info) Description 09/14/2015 Scanned Document Lab for [facility] [address] [place] [address] Adm/Consult, Hospitalist [address] [place] [address] Social History Tobacco Use Types Packs/Day Years [...] on filedocumented in this encounter Care Teams Apparatus Lineman Relationship Specialty Start Date End Date Fitz Cruz MD 5 [facility] [address] [place] [phone] PCP - General Internal Medicine 11/04/16 04/09/17 documented as of this encounter
--- OUTSIDE RECORDS SUMMARY | 2024-06-06 16:58 | XMS_ITS | Encounter Summary ---
Author Organization [facility] Address [address] [place] [phone] Care Team Providers Care Dip Guider Stoves Name Role Phone Fitz Cruz MD Primary Care Provider [phone] Reason for Referral * Imaging (Routine) - Closed Specialty Diagnoses / Procedures Referred By Contac t Referred To Contact Diagnostic Radiology Procedures CT Head wo IV Contrast [facility] [address] [address] Phone: tel: fax: Referral ID Status Reason Start Date Expiration Date Visits Re quested Visits Authorized [id number] Closed 09/17/2015 09/16/2016 1 1 Encounter Details Date Type Department Care Team (Late st Contact Info) Description 09/17/2015 Scanned Document [facility] [address] [address] ProviderBritni . Social History Tobacco Use Types [...] XR CHEST PA AND LATERAL Routine 09/14/2015 [place] CARDIAC STRESS TST,TRACING ONLY Routine 09/14/2015 BASIC METABOLIC PANEL Routine 09/14/2015 documented in this encounter Results * [place] CARDIAC STRESS TST,TRACING ONLY (09/14/2015) Historical Provider [place] CARDIOVASCULAR SYSTEM SER VICES Final Result * Basic metabolic panel (09/14/2015) Blood specimen (specimen) Historical Provider LAB BLOOD ORDERABLES Final R esult [facility] * XR Chest PA and Lateral (09/14/2015) Anatomical Region Laterality Modality Chest Digital Radiogra phy [facility] Provider IMG DIAGNOSTIC IMAGING ORDER PAUL Final Result * CT Head wo IV Contrast (09/14/2015) Anatomical Region Laterality Modality Head, Ortho Head Computed Tomogr aphy Historical Provider IMG CT ORDERABLES Final Resu lt documented in this encounter Visit Diagnoses Not on filedocumented in this encounter Care Teams Dip Guider Stoves Relationship Specialty Start Date End Date Fitz Cruz MD 5 [facility] [place] [address] [place] [phone] PCP - General Internal Medicine 11/04/16 04/09/17 documented as of this encounter
--- OUTSIDE RECORDS SUMMARY | 2024-06-06 16:58 | XMS_ITS | Clinical Summary ---
Author Organization [address] Address [address] [place] [phone] Phone Care Team Providers Care Design Engineer Name Role Phone Unavailable Primary Care Provider Unavailabl e Allergies Active Allergy Reactions Criticality Noted Date Comments Amlodipine High 11/13/2013 Retain fluids Celecoxib 12/10/2012 Lisinopril 01/22/2016 Metoprolol Tartrate Nausea Low 08/04/2013 Nsaids (Non-Steroidal Anti-Inflammatory Drug) 12/10/2012 Penicillins Anaphylaxis High 07/06/2012 Prokiei-Tfr-Xfm Reductase Inhibitors Medium 11/13/2013 Muscle pain-cramping Medications [...] Stroke Maternal Aunt Heart disease Maternal Cousin [place] Hypertension Mother Stroke Mother Cancer Paternal Grandmother breast cancer Hypertension Sister 1 Hypertension Sister 2 Relation Name Status Comments Father (Age 64) [place] Maternal Aunt Maternal Cousin Alive Mother (Age [...] (ABNORMAL) Lipid panel (06/30/2016 9:35 AM EDT) [facility] Cholesterol 264(H) See Comment mg/dL 06/30/2016 12:46 PM EDT [facility] Comment: Total Cholesterol (mg/dL) ?Adults (>18 years) ? Children (<18 years) Desirable ?<200 ? <170 Borderline-High ?200-239 ?170-199 High ? >=240 ?>=200 ? HDL 45 >=40 mg/dL 06/30/2016 12:46 PM EDT [facility] Triglycerides 284(H) See Comment mg/dL 06/30/2016 12:46 PM EDT [facility] Comment: Triglycerides (mg/dL) ?Adults (>18 years) ? Children (<18 years) Desirable ?<150 ? Not Established Borderline-High ?150-199 ?Not Established High ? 200-499 ?Not Established ?? Chol/HDL Ratio 5.9(H) <=5 [facility] LDL Calculated 162(H) See Comment mg/dL 06/30/2016 12:46 PM [facility] Comment: LDL Cholesterol (mg/dL) ?Adults (>18 years) ? Children (<18 years) Desirable ?<100 ? <110 Above Desirable ?100-129 ?Not Established Borderline-High ?130-159 ?110- 129 High ? 160-189 ?>=130 Very High? >=190 ? Not Established Blood specimen (specimen) Venipuncture / Unknown 06/30/2016 9:35 AM EDT 06/30/2016 9:35 AM EDT us Abdon Lepe MD LAB BLOOD ORDERABLES Final Result Performing Organization Address [facility]/State/[facility] Co de Phone Number [facility] [address] [place] [address], [facility] [phone] * (ABNORMAL) Comprehensive metabolic panel (07/17/2015 1:57 PM EDT) Glucose 132(H) 70 - 100 mg/dL [facility] BUN 18 7 - 20 mg/dL [facility] Creatinine 0.9 0.5 - 1.2 mg/dL [facility] Anion Gap 18(H) 7 - 16 [facility] CO2 23.5 22.0 - 30.0 mmol/L [facility] Chloride 95(L) 96 - 106 mmol/L [facility] Sodium 136 135 - 145 mmol/L [facility] Potassium 4.6 3.3 - 5.0 mmol/L [facility] Calcium 9.9 8.8 - 10.2 mg/dL [facility] Total Protein 7.1 6.0 - 8.3 g/dL [facility] Albumin 3.8 3.5 - 5.0 g/dL [facility] Globulin 3.3 2.3 - 3.5 g/dL [facility] A/G Ratio 1.2 1.0 - 2.2 [facility] Aspartate Aminotransferase (AST) 22 0 - 34 U/L [facility] Alanine Aminotransferase (ALT) 16 0 - 34 U/L [facility] Alkaline Phosphatase 77 30 - 130 U/L [facility] Total Bilirubin 0.28 <1.20 mg/dL [facility] Blood specimen (specimen) 07/17/2015 1:57 PM EDT Ines Benjamin MD LAB BLOOD ORDERABLES Final R esult [facility] [address] [place] [phone] from Last 3 Months or Most Recently Relevant to Health Maintenance Insurance MEDICARE [facility] MEDICARE [facility] MEDICARE [facility] MEDICARE [facility]
--- OUTSIDE RECORDS SUMMARY | 2024-06-06 16:58 | XMS_ITS | Encounter Summary ---
Author Organization [facility] Address [address] [place] [phone] Care Team Providers Care Animal Care Provider Name Role Phone Fitz Cruz MD Primary Care Provider [phone] Encounter Details Date Type Department Care Team (Late st Contact Info) Description 01/21/2014 Scanned Document [facility] [address] [place] [phone] Priyanka Ontiveros MD [address] [place] [address] [place] [address] Social History Tobacco Use Types [...] MD LAB BLOOD ORDERABLES Fin al Result [facility] [place], [place], [facility] documented in this encounter Visit Diagnoses Not on filedocumented in this encounter Care Teams Animal Care Provider Relationship Specialty Start Date End Date Fitz Cruz MD [address] [place] [phone] PCP - General Internal Medicine 11/04/16 04/09/17 documented as of this encounter
--- OUTSIDE RECORDS SUMMARY | 2024-06-06 16:58 | XMS_ITS | Encounter Summary ---
Author Organization [facility] Address [address] [place] [address] Care Team Providers Care Bobbin Winder Tender Name Role Phone Fitz Cruz MD Primary Care Provider [phone] Encounter Details Date Type Department Care Team (Late st Contact Info) Description 01/17/2017 Scanned Document [facility]. [address] [address] External, Provider Social History Tobacco [...] on filedocumented in this encounter Care Teams Bobbin Winder Tender Relationship Specialty Start Date End Date Fitz Cruz MD [address] [place] [phone] PCP - General Internal Medicine 11/04/16 04/09/17 documented as of this encounter
[2024-06-06 18:19] LABS: Alanine Aminotransferase 12 U/L (0-31); Albumin Level 3.8 g/dL (3.5-5.0); Alkaline Phosphatase 80 U/L (39-117); Aspartate Amino Transferase 28 U/L (5-31); Bilirubin Direct 0.2 mg/dL (0.0-0.5); Bilirubin Total 0.5 mg/dL (0.0-1.0); Estimated Glomerular Filt Rate > 60; Total Protein 6.7 g/dL (6.5-8.0)
== END 2024-06-06 13:05 | disposition home or self-care (01) ==
LOC: HO.HKASLDS 13:04
PROVIDERS: PCP Internal Medicine; Visit Provider Internal Medicine Rheumatology
DX: M25.512 Pain in left shoulder (principal); G89.29 Other chronic pain; R29.6 Repeated falls; M25.522 Pain in left elbow
CPT/HCPCS: 36415; 80076; 82565; 99212

== ENCOUNTER 2024-08-22 13:27 | Outpatient (AMB) | payer MEDICARE, SELFPAY ==
[2024-08-22 13:30] VITALS: BP 140/80; PULSE 60; O2SAT 97
--- NOTE | 2024-08-22 13:30 | MHC.OFFVIS ---
Vital Signs 08/22/24 13:30 Height 5 ft 2 in BP 140/80 H Blood Pressure Location Rt brachial Position Sitting Pulse 60 Pulse Source Pulse Oximeter Pulse Oximetry (%) 97 Oxygen Delivery Method Room Air Intake Visit Reasons: ENP-Concern of Parkinsons disease Sales Office Administrator Required: No Accompanied by: Self / Same As Patient Allergies Penicillins Allergy (Intermediate, Verified 08/22/24 13:37) Anaphylaxis diclofenac Allergy (Mild, Verified 08/22/24 13:37) Swelling NSAIDS (Non-Steroidal Anti-Inflamma Allergy (Mild, Verified 08/22/24 13:37) swapna blood pressure Medication List - Last Reconciled 08/22/24 by Lucille Hodgson MD aspirin (Adult Aspirin Regimen) 81 mg PO DAILY carbidopa-levodopa 25-100 mg 1 tab PO BID carvedilol 3.125 mg PO BID diclofenac sodium 1% 2 grams topical QID PRN ezetimibe (Zetia) 10 mg PO DAILY hydrochlorothiazide 12.5 mg PO DAILY leg brace (Knee Support Brace) As directed Right knee hinged brace Dx: osteoarthritis losartan 25 mg PO DAILY pravastatin 10 mg PO BEDTIME vitamins A,C,R-bqrc-jlzhow 4,296 mcg-226 mg-90 mg (PreserVision AREDS) 1 cap PO BID HPI Comments Details: 83y/o female comes for evaluation of possible parkinsons disease. she also has rheumatoid arthritis - which affects her gait. she reports left leg weakness, left foot drop, left UE weakness for more than 2 years.. she reports feeling very tired and sleepy after a meal. she does not sleep well at night due to nocturia. she lives with health care proxy and gets IS TECHNICIAN help. she has been developing gait balance issues for 4 years. 4 years ago she had vertigo , hearing loss and loss of balance. No tremors. SHe has thoracic vertebra fracture and also sacral pain she has high risk of falls- had a fall 10 days ago. COUNT INCLUDES [facility] Medical History (Updated 08/22/24 @ 14:17 by Lucille Hodgson MD) Parkinsonism Physical Exam Vital Signs: Last Vital Signs Pulse 60 08/22/24 13:30 BP 140/80 H 08/22/24 13:30 Pulse Ox 97 08/22/24 13:30 Oxygen Delivery Method Room Air 08/22/24 13:30 Const General: cooperative, comfortable and no acute distress Nutritional Appearance: average body habitus Orientation/consciousness: patient oriented x3 Neuro Other: Moderately decreased blink, facial expression left frozen shoulder Hypophonia no tremors FFM and foot taps - severely decreased Gait very difficult to get up from chair - small steps ? left foot is weaker and gets stuck Mild increased tone in all extremities left LE weakness 3-4/5 Left UE 4+/5 General: patient oriented x3 and moves all extremities Cranial nerves: No Bilaterally intact EOM present, Yes Nystagmus not present, Yes Normal facial strength present and Yes Midline tongue present Cognition (Neuro): normal cognition Deep tendon reflexes (DTR's): Right triceps reflex intensity grade: 3+, Left triceps reflex intensity grade: 3+, Rt Biceps (C5, C6): 3+, Left biceps reflex intensity grade: 3+, Right brachioradialis reflex intensity grade: 3+, Left brachioradialis reflex intensity grade: 3+, Right patellar reflex intensity grade: 3+ and Left patellar reflex intensity grade: 3+ Assessment & Plan Assessment & Plan (1) Parkinsonism: Code(s): G20.C - Parkinsonism, unspecified Category: Medical Qualifiers: Parkinsonism type: unspecified Qualified Code(s): G20.C - Parkinsonism, unspecified Plan This was a counseling predominated session . I will trial her on carbidopa/levodopa 25/100 1 tab bid will consider PATEL scan Medications: New carbidopa-levodopa 25-100 mg 1 tab PO BID 60 tabs 6RF Coding Level of Care Code New Pt Level 4 (44060) Complex EM visit Add On G2211 Diagnoses Parkinsonism, unspecified Parkinsonism type G20.C Parkinsonism type: unspecified
--- OUTSIDE RECORDS SUMMARY | 2024-08-22 13:30 | XMS_ITS | Clinical Summary ---
Author Organization [facility] [address] [facility] Address [address] [place] [address] Phone Care Team Providers Care Rice Farmer Name Role Phone Diogenes Medeiros MD Primary Care Provider [phone] Allergies Active Allergy Reactions Criticality Noted Date Comments Amlodipine Unknown 06/14/2024 Atorvastatin Unknown 06/14/2024 Celecoxib Unknown 06/14/2024 Lisinopril Unknown 06/14/2024 Metoprolol Unknown 06/14/2024 Nsaids (Non-Steroidal Anti-I nflammatory Drug) Unknown 06/14/2024 Penicillins Unknown 06/14/2024 Simvastatin Unknown 06/14/2024 Verapamil Unknown 06/14/2024 Active Problems Problem Noted Date Diagnosed Date Gastritis 02/21/2024 Encounters Date Type Department Care Team Description 06/14/2024 7:55 PM EDT - 06/14/2024 9:05 PM EDT Emergency [facility] Emergency [address] [place] [phone] Impacted cerumen of right ear (Primary Dx) Discharge Disposition: Home or Self Care from Last 3 Months Social History Tobacco Use Types Packs/Day Years Used Date Smoking Tobacco: Never Assessed Comments Unknown Sex and Gender Information Value Date Recorded Sex Assigned at Not on file Legal Sex Female 3:40 PM EDT Gender Identity Not on file Sexual Orientation Not on file Last Filed Vital Signs Vital Sign Reading Time Taken Comments Blood Pressure 112/49 06/14/2024 6:34 PM EDT Pulse 69 06/14/2024 6:34 PM EDT Temperature 36.4 C (97.5 F) 06/14/2024 6:34 PM EDT Respiratory Rate 18 06/14/2024 6:34 PM EDT Oxygen Saturation 98% 06/14/2024 8:14 PM EDT Inhaled Oxygen Concentration - - Weight 56.7 kg (125 lb) 06/14/2024 6:34 PM EDT Height 157.5 cm (5' 2 ) 06/14/2024 6:34 PM EDT Body Mass Index 22.86 06/14/2024 6:34 PM EDT Plan of Treatment Health Maintenance Due Date Last Done Comments RSV Immunization Adult Patients (1 - 1-dose 75+ series) 12/09/2015 Cholesterol Screening (Lipid Panel) 11/29/2023 06/30/2016 Depression Screening 11/29/2023 Falls Risk Assessment 11/29/2023 Medicare Annual Wellness Visit 11/29/2023 Osteoporosis Screening (Bone Density Screening) 11/29/2023 Social Influencers of Health Screening 11/29/2023 Hypertension/CHF/CAD Annual BMP Blood Test 06/15/2024 COVID-19 Vaccine ( season) 2024 12/21/2023, 01/06/2023, 06/25/2022, Additional history exists Influenza Vaccine (#1) 2024 , 12/23/2022, 12/07/2021, Additional history exists DTaP,Tdap,and Td Vaccines (2 - Td or Tdap) 01/26/2025 01/26/2015 Pneumococcal Vaccine: 50+ Years Completed 01/05/2018, 11/26/2014, 01/15/2014 Zoster Vaccines Completed 06/21/2018, 09/2018, 08/13/2013 HIB Vaccines Aged Out No longer eligi [...] to complete this topic RSV Immunization Patients Under 20 months Aged Out No longer eligible based on patient's age to complete this topic Varicella Vaccines Aged Out No longer eligible based on patient's age to complete this topic Procedures Procedure Name Priority Date/Time Associated Diagnosis Comments [id number], RSV, FLU A AND B QUALITATIVE RT-PCR, INTERNAL LAB STAT 06/14/2024 6:41 PM EDT from Last 3 Months Results * [id number], RSV, Influenza A and B qualitative RT-PCR (06/14/2024 6:41 PM EDT) Influenza A PCR Not Detected Not Detected LAB MICROBIOLOGY METHOD 06/14/2024 8:18 PM EDT [facility] Influenza B PCR Not Detected Not Detected LAB MICROBIOLOGY METHOD 06/14/2024 8:18 PM EDT [facility] RSV PCR Not Detected Not Detected LAB MICROBIOLOGY METHOD 06/14/2024 8:18 PM EDT [facility] SARS COV-2 Not Detected Not Detected LAB MICROBIOLOGY METHOD 06/14/2024 8:18 PM EDT [facility] Swab Both anterior nares / Unknown Non-blood Collection / Unknown 06/14/2024 6:41 PM EDT 06/14/2024 7:36 PM EDT Narrative [facility] - 06/14/2024 8:18 PM EDT Disclaimer: Testing was performed using the [employer] GeneXpert Xpress SARS-CoV-2 _Flu_RSV PLUS PCR assay. The manner in which this information is used to guide patient care is the responsibility of the healthcare provider. Results should be correlated with the clinical history, epidemiological data, and other data available to the clinician evaluating the patient. Negative results do not preclude infection. This test has been authorized by the FDA under an Emergency Use Authorization (EUA). This test is only authorized for the duration of time the declaration that circumstances exist justifying the authorization of the emergency use of in vitro diagnostic tests for detection of SARS-CoV-2 virus and/or diagnosis of COVID-19 infection under section 564 (b) (1) of the Act, 21 U.S.C 360bbb-3 (b) (1), unless the authorization is terminated or revoked sooner. Reference Range: Not Detected Fact sheet for Healthcare providers can be found at https://www.fda.gov/media/805026/download. Fact sheet for Healthcare patients can be found at https://www.fda.gov/media/741691/download. Edson Wilson MD LAB MICROBIOLOGY - GENERAL AIYANA HAYDEN Final Result [facility] [address] [place] [address], from Last 3 Months Insurance MEDICARE [facility] Care Teams Rice Farmer Relationship Specialty Start Date End Date Diogenes Medeiros MD [address] [place] [phone] PCP - General Internal Medicine 02/19/24
--- OUTSIDE RECORDS SUMMARY | 2024-08-22 13:30 | XMS_ITS | Patient Health Record ---
Author Organization [facility] Address [address] [place] [address] Care Team Providers Care Health Outreach Worker Name Role Phone JV MURILLO M.D. Primary Care Provider U hangsofiaLucita Moody Unavailable [phone] Allergies Allergen (clinical drug ingredient) Drug/Non Drug Allergy documented on EMR Reaction Allergy Type Onset Date Status amlodipine Amlodipine Besylate Swelling Drug Allergy Active Metoprolol & Diet Manage Prod Nausea Drug Allergy Active Penicillin Unknown Drug Allergy Active Substance with 8-bsjtdcc-3-methylgl utaryl-coenzyme A reductase inhibitor mechanism of action (substance) Statins Muscle Weakness Drug Allergy Active Reason For Referral No Information Medications Medication SIG (Take, Route, Frequency, Duration) Notes Start Date End Date Status Synthroid 75 MCG 1 Orally daily Micah-MJ 01/26/2012 Active Carvedilol 3.125 MG Orally Active Low-Dose Aspirin Act shnaelle hydroCHLOROthiazide 12.5 MG Orally Active Losartan Potassium 50 MG Orally Active Social History Sexual History Question Answer Notes Had sex in the past 12 months (vaginal, oral, or anal)? No Problems Problem Type SNOMED Code ICD Code Onset Dates Problem Status W/U Status Risk Notes Problem Age-related osteoporosis (675817252) Age-related osteoporosis without current pathological fracture (M81.0) Active confirmed Problem Abnormal findings on diagnostic imaging of breast (513707583) Other abnormal and inconclusive findings on diagnostic imaging of breast (R92.8) Active confirmed Problem Hyperlipidemia (25379949) Other and unspecified hyperlipidemia (272.4) Active confirmed Major Problem Benign essential hypertension (7240368) Essential hypertension, benign (401.1) Active confirmed Major Problem Menopausal symptom (79675883) Symptomatic menopausal or female climacteric states (627.2) Active confirmed Major Problem Gynecological examination normal (525738290172249) Routine gynecological examination (V72.31) Active confirmed Major Problem Screening for malignant neoplasm of colon (905448134) Special screening for malignant neoplasms, colon (V76.51) [...] Coverage End Date MEDICARE [address] [facility] [place] [id number] GRETTA GRIFFITHS Self - patient is the insured [employer] [address] [place] [address] [phone] [id number] GRETTA GRIFFITHS Self - patient is [...]
--- OUTSIDE RECORDS SUMMARY | 2024-08-22 13:30 | XMS_ITS ---
Author Organization [facility] Care Team Providers Care Field Logistics Coordinator Name Role Phone Nkechi Kline Unavailable Unavailable Mayo Parisi Unavailable Unavailable Mary Ann Solomon Unavailable Unavailable Daksha Tinsley Unavailable Unavailable Gianna Juarez Unavailable Unavailable Lele Williamson Unavailable Unavailable Allergies and adverse reactions Code CodeSystem Substance Reaction Severity StartDate Concern Status 69928 RXNORM Verapamil Unknown 08/18/[address] Statins Unknown 08/18/2023 active 7984 RXNORM Penicillin Unknown 08/18/2023 active 6918 RXNORM Metoprolol Unknown 08/18/2023 active 05829 RXNORM Lisinopril Unknown 08/18/2023 active 74065 RXNORM Lipitor Unknown 08/18/2023 active 536430 RXNORM CeleBREX Unknown 08/18/2023 active Amlodipine/Atorv astat in Unknown 08/18/2023 active Care Team Name Role Address Phone Organization Dates Mayo Parisi PCP [address], [place], [address], [place] (Office): [facility] 08/18/2023 - 08/22/2023 Nkechi Kline [address], [place], [address], [place] (Office): [facility] 08/18/2023 - 08/22/2023 Mary Ann Solomon [address] [place], [place] [address] [address], [place], [address], [facility] (Office): [facility] 08/18/2023 - 08/22/2023 Daksha Villayuan [address] [facility], [place], [address], [facility] (Office): : [facility] 08/18/2023 - 08/22/2023 Gianna Juarez [address] [facility] [facility], [place], [address], [facility] (Office): [facility] 08/18/2023 - 08/22/2023 Lele Williamson [address] [place], [address], [facility] (Office): : [facility] 08/18/2023 - 08/22/2023 Goals Section Goals Description Status Target Date Decreased number of falls Active 2023 Infection will be resolved without complications Active 12/06/2023 Minimize risk for falls Active 12/06/19 Minimize risk for injury related to falls Active 12/06/2023 Skin will remain free of huseyin akdown within limits of disease process Active 12/06/2023 Skin will remain in tact, fr ee from erythema, breakdown, excoriation or bruising until next review Active 12/06/2023 Will attain/maintain continence based upon usual voiding pattern Active 12/06/2023 Will be free from skin breakdown Active 12/06/2023 Will be free of complications related to disease process Active 12/06/2023 Will be maintained in as chichi an and dry a dignified state as possible Active 12/06/2023 Will be maintained in as chichi an and dry a dignified state as possible Active 12/06/2023 Will decrease/minimize skin breakdown risks Acti ve 12/06/2023 Will exhibit no acute cardia c distress such as complaints of chest pain, cyanosis, SOB, etc. Active 12/06/2023 Will express that pain management is within acce ptable limits Active 12/06/2023 Will have a bowel movement at least every three days Active 12/06/2023 Will have no adverse effects related diuretic th erapy Active 12/06/2023 Will have no complications due to incontinence A ctive 12/06/2023 Will have no complications related to bowel inco ntinence Active 12/06/2023 Will have no complications related to constipati on Active 12/06/2023 Will have no skin breakdown Active 11/14 Will not develop complications related to decrea sed mobility Active 12/06/2023 Will reduce episodes of util ization of breakthrough pain medication Active 12/06/2023 Will remain continent of bowel Active Will remain free of further complications relate d to osteoporosis Active 12/06/2023 Will tolerate diet, texture and fluid consistency without signs and symptoms of aspiration Active 12/06/2023 Immunizations Immunization Status Vaccine Details Vaccine Code CodeSystem Date Notes Influenza completed Influenza, split virus, trivalent, injectable, contains preservative 141 CVX created date: 08/18/2023 administere d date: 12/23/2022 Zostavax(Shingles) completed zoster vaccin e, live 121 CVX created date: 08/18/2023 administere d date: 06/21/2018 Zostavax(Shingles) completed zoster vaccin e, live 121 CVX created date: 08/18/2023 administere d date: 04/20/2018 Pneumococcal Conjugate Vaccine (PCV13) completed pneumococcal conjugate vaccine, 13 valent 133 CVX created date: 08/18/2023 administere d date: 01/05/2018 Pneumococcal Polysaccharide Vaccine (PPSV23) completed pneumococcal polysaccharide vaccine, 23 valent 33 CVX created date: 08/18/2023 administere d date: 01/15/2014 SARS-COV-2 (COVID-19) completed SARS-COV-2 (COVID-19) vaccine, mRNA, spike protein, LNP, bivalent, preservative free, 30 mcg/0.3 mL dose, shelby-sucrose formulation Step 1 of Multi-step with next step required 300 CVX created date: 08/18/2023 administere d date: 05/26/2020 SARS-COV-2 (COVID-19) completed SARS-COV-2 (COVID-19) vaccine, mRNA, spike protein, LNP, bivalent, preservative free, 30 mcg/0.3 mL dose, shelby-sucrose formulation Step 1 of Multi-step with next step required 300 CVX created date: 08/18/2023 administere d date: 05/05/2020 SARS-COV-2 (COVID-19 BOOSTER) completed SARS-COV-2 (COVID-19) vaccine, mRNA, spike protein, LNP, preservative free, shelby-sucrose, 3 mcg/0.3 mL dose 308 CVX created date: 08/18/2023 administere d date: 01/06/2023 SARS-COV-2 (COVID-19 BOOSTER) completed SARS-COV-2 (COVID-19) vaccine, mRNA, spike protein, LNP, bivalent, preservative free, 10 mcg/0.2 mL dose, shelby-sucrose formulation 301 CVX created date: 08/18/2023 administere d date: 06/25/2022 SARS-COV-2 (COVID-19 BOOSTER) completed SARS-COV-2 (COVID-19) vaccine, mRNA, spike protein, LNP, bivalent, preservative free, 3 mcg/0.2 mL dose, shelby-sucrose formulation 302 CVX created date: 08/18/2023 administere d date: 12/14/2020 Tdap completed tetanus toxoid, reduced diphtheria toxoid, and acellular pertussis vaccine, adsorbed 115 CVX created date: 08/18/2023 administere d date: 01/26/2015 Mental Status Section Date Assessment Total Score Description 08/21/2023 BIMS 12 moderate cognit shanelle impairment CAM 0 No delirium ind icated PHQ-9 00 Problems Problem # Description Date of onset Resolved Date Code CodeSystem Concern Status 1 AGE-RELATED OSTEOPOROSIS WITHOUT CURRENT PATHOLOGICAL FRACTURE 08/18/[address] active 2 ATHEROSCLEROTIC HEART DISEASE OF [place] CORONARY ARTERY WITHOUT ANGINA PECTORIS 08/18/[address] active 3 COVID-19 08/18/[address] active 4 DIFFICULTY IN WALKING, NOT ELSEWHERE CLASSIFIED 08/18/[address] active 5 ESSENTIAL (PRIMARY) HYPERTENSION 08/18/[address] active 6 HYPERLIPIDEMIA, UNSPECIFIED 08/18/[address] active 7 HYPOKALEMIA 08/18/[address] active 8 HYPOTHYROIDISM, UNSPECIFIED 08/18/[address] active 9 MUSCLE WEAKNESS (GENERALIZED) 08/18/[address] active 10 NEED FOR ASSISTANCE WITH PERSONAL CARE 08/18/[address] active 11 OTHER INTERVERTEBRAL DISC DEGENERATION, LUMBAR REGION 08/18/[address] active 12 OTHER SYMPTOMS AND SIGNS INVOLVING COGNITIVE FUNCTIONS AND AWARENESS 08/18/[address] active 13 PNEUMONIA, UNSPECIFIED ORGANISM 08/18/[address] active 14 UNSTEADINESS ON FEET 08/18/[address] active Reason for Referral No Reasons for Referral Entered Social History Social History Observation Description Start Date End Date Code Code System Current Smoking Status Tobacco smoking consumption unknown 309189835 SNOMED CT Sex Assigned At Female 1940 [address]0 [facility] Gender Identity Vital Signs Code Code System Vitals Name Values and Units Timing Information 9279-1 [facility] Respiratory Rate Value=20.0 Units=/m in 08/21/2023 57198-0 [facility] O2 % BldC Oximetry Value=95.0 Units= % 08/21/2023 79949-0 [facility] Pain Level Value=0.0 08/21/2023 8462-4 [facility] Blood Pressure-Diastolic Value=70 Un its=mmHg 08/21/2023 8480-6 [facility] Blood Pressure-Systolic Lhrvv=457 Un its=mmHg 08/21/2023 8310-5 [facility] Body Temperature Value=98.2 Units= F 08/21/2023 8867-4 [facility] Heart rate Value=78.0 Units=/min 09/2023 42528-7 LOINC Weight Hzgzd=069.2 Units=Lbs 08/2023 8302-2 [facility] Height Value=62.0 Units=Inches 08/18/2023
--- OUTSIDE RECORDS SUMMARY | 2024-08-22 13:30 | XMS_ITS | Patient Health Record ---
Author Organization [facility] Address [address] [place] [address] Care Team Providers Care Deputy Chief Executive Name Role Phone Diogenes Medeiros Primary Care Provider Unavailabl e Allergies Allergen (clinical drug ingredient) Drug/Non Drug Allergy documented on EMR Reaction Allergy Type Onset Date Status amLODIPine-Atorvasta t in Unknown Drug Allergy Active celecoxib CeleBREX Unknown Drug Allergy Active atorvastatin Lipitor Unknown Drug Allergy Acti ve lisinopril Lisinopril Unknown Drug Allergy Activ e Substance with 6-gvfqanj-9-methylglutar yl-coenzyme A reductase inhibitor mechanism of action [...] Problem Status W/U Status Risk Notes Problem 419948848340558 Hallux valgus (acquired), right foot (M20.11) Active confirmed Problem 530396179980585 Hallux valgus (acquired), left foot (M20.12) Active confirmed Problem 472985458939147 Acquired left foot drop (M21.372) Active confirmed Problem 70432875 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
--- OUTSIDE RECORDS SUMMARY | 2024-08-22 13:30 | XMS_ITS | Encounter Summary ---
Author Organization [facility] Address [address] [place] [address] Care Team Providers Care Mine Laborer Name Role Phone Fitz Cruz MD Primary Care Provider [phone] Encounter Details Date Type Department Care Team (Late st Contact Info) Description 01/17/2017 Scanned Document [facility] Internal Medicine [facility]. [address] [address] External, Provider Social History Tobacco [...] on filedocumented in this encounter Care Teams Mine Laborer Relationship Specialty Start Date End Date Fitz Cruz MD [address] [place] [phone] PCP - General Internal Medicine 11/04/16 04/09/17 documented as of this encounter
== END 2024-08-22 14:30 | disposition home or self-care (01) ==
LOC: HO.HSMS 13:28
PROVIDERS: PCP Internal Medicine; Visit Provider Psychiatry & Neurology Neurology
DX: G20.C Parkinsonism, unspecified (principal)
CPT/HCPCS: 99204; G2211

== ENCOUNTER → 2024-08-22 13:27 | Outpatient (BNVA) | payer MEDICARE, SELFPAY | PROVIDERS: PCP Internal Medicine; Visit Provider Psychiatry & Neurology Neurology | DX: G20.C Parkinsonism, unspecified (principal) | CPT/HCPCS: 99202 ==

== ENCOUNTER 2024-09-12 13:07 | Outpatient (AMB) | payer MEDICARE, SELFPAY ==
[2024-09-12 13:10] VITALS: BP 122/72; PULSE 62; O2SAT 97
--- NOTE | 2024-09-12 13:10 | MHC.OFFVIS ---
Vital Signs 09/12/24 13:10 Height 5 ft 2 in BP 122/72 Blood Pressure Location Rt brachial Position Sitting Pulse 62 Pulse Source Pulse Oximeter Pulse Oximetry (%) 97 Oxygen Delivery Method Room Air Intake Visit Reasons: 3 Months Intake Note: Patient presents today for RA/PSA follow up Allergies Penicillins Allergy (Intermediate, Verified 09/12/24 13:10) Anaphylaxis diclofenac Allergy (Mild, Verified 09/12/24 13:10) Swelling NSAIDS (Non-Steroidal Anti-Inflamma Allergy (Mild, Verified 09/12/24 13:10) rasie blood pressure HPI HPI 3 Months: Details: She was recently started on carbidopa-levodopa. She has dizziness since starting new medication but reports that movement of her left leg has improved. She has not been compliant with home exercise program for lower extremity strengthening due to dizziness that she is experiencing. She spends a lot of time now lying down (new). She is experiencing pain in her left hip radiating down to her knee. She also has groin pain. She has difficulty sleeping on her left side. 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 Unspecified premature depolarization Unspecified hearing loss, left ear Unspecified disorder of vestibular function, unspecified ear Other disorders of electrolyte and fluid balance, not elsewhere classified Atherosclerotic heart disease of [place] coronary artery without angina pectoris Essential (primary) hypertension Hyperlipidemia, unspecified Hypothyroidism, unspecified Elevated white blood cell count, unspecified Hypotension, unspecified Urinary tract infection, site not specified Syncope and collapse Hypo-osmolality and hyponatremia Difficulty in walking, not elsewhere classified Muscle weakness (generalized) Metabolic encephalopathy Parkinsonism Physical Exam Vital Signs: Last Vital Signs Pulse 62 09/12/24 13:10 BP 122/72 09/12/24 13:10 Pulse Ox 97 09/12/24 13:10 Oxygen Delivery Method Room Air 09/12/24 13:10 Const Other: General: Comfortable Skin: No lesions seen MSK: Tender left groin region, trochanteric bursa and along ITP band to its insertion distally. She has limited full external rotation of left hip. Office Procedures AMB Joint Injection/Aspiration Joint Injection/Aspiration Details: Left trochanteric bursa Prep: site was prepped using aseptic technique Injected: 40 mg of, Kenalog, with 1 mL of and 1% plain lidocaine Procedure: Informed verbal consent was obtained. The patient tolerated the procedure well. Postprocedure protocol was discussed with patient. Coding 97540 - Large joint Procedure code (CPT) selection complete Office Meds lidocaine (PF) 10 mg/mL (1 %) injection solution Performing Provider: Salas Tretn MD Performing Location: [facility] [place] [facility] Administered by: Bessie Negron RN on 09/12/24 15:34 Dose Route Admin Location Dispensed Lot Number Expiration Date [facility] Cosmetic Maker 10 mg Infiltration 2 mL [id number] 07/13/26 66103-708-61 [employer] Total Dispensed Waste 2 mL 50 % Kenalog 40 mg/mL suspension for injection Performing Provider: Salas Trent MD Performing Location: [facility] [place] [facility] Administered by: Bessie Negron RN on 09/12/24 15:34 Dose Route Admin Location Dispensed Lot Number Expiration Date [facility] Cosmetic Maker 40 mg intrabursal 1 mL [id number] 01/12/26 9078-3145-93 HIKMA PHARMACEU Total Dispensed Waste 1 mL 0 % Assessment & Plan Assessment & Plan (1) Frequent falls: Comment: The most recent fall led to to T12 compression fracture noted on MRI, which patient had done at [facility]. She has osteoporosis by WHO definition with having a fragility fracture. She also reports in the past she has had a bone density that had confirmed she had osteoporosis. She does not remember being treated for osteoporosis. Since starting carbidopa-levodopa for parkinsonian ism, she has not been compliant with her home exercise program as she feels dizzy. Code(s): R29.6 - Repeated falls Category: Medical Plan: Requesting last bone density from [facility] I recommend that she continue strengthening exercises of her lower extremities home exercise program from PT, which she has completed on 4 occasions. If dizziness does not improve, I recommend that she contact Neurology Continue to use Tylenol as needed. History of baseline transaminitis being monitored by PCP per patient. Apply lidocaine patch daily Uncontrolled urinary incontinence (nocturia frequency Q 1 hourly at night) is contributing to fatigue, which is a risk factor for her falling as she feels very sleepy during the day. I recommend urogynecology evaluation/PCP follow-up. Return to clinic in 3-4 months (2) Left shoulder pain: Comment: With history of rotator cuff tendinopathy and limited range of motion. She has a left frozen shoulder. Code(s): M25.512 - Pain in left shoulder Category: Medical Qualifiers: Chronicity: chronic Qualified Code(s): M25.512 - Pain in left shoulder; G89.29 - Other chronic pain Plan: X-ray left shoulder ordered in prior visits. Patient reports she had x-rays few weeks ago. I will request them. Continue exercises at home daily. In the past she had exercise home program with bands. I recommend that she start exercising with bands to try to improve her range of motion. If she continues to have limited range of motion next visit, I will treat with cortisone injection Return to clinic in 3 months (3) Left hip pain: Comment: Likely pain is from trochanteric bursitis and IT band strain. Trochanteric bursa pain can radiate to the groin. If she continues to have groin pain after cortisone injection, I would be concerned about hip joint pathology contributing to her pain. She has a history of right hip replacement. She reports she had x-rays were performed of her hip a few weeks ago. I will obtain those results. Code(s): M25.552 - Pain in left hip Category: Medical Plan: Patient received left trochanteric bursa cortisone this visit X-ray left hip requested Continue home exercise program Return to clinic in 3-4 months (4) Trochanteric bursitis, left hip: Comment: Uncontrolled pain Code(s): M70.62 - Trochanteric bursitis, left hip Category: Medical Plan: Patient received left trochanteric bursa cortisone injection this visit Return to clinic in 3-4 weeks Orders: Orders AMB Joint Injection/Aspiration 09/12/24 M70.62 - Trochanteric bursitis, left hip Coding Level of Care Code Est Pt Level 4 (10815) Complex EM visit Add On G2211 Diagnoses Frequent falls R29.6 Chronic left shoulder pain M25.512; G89.29 Chronicity: chronic Left hip pain M25.552 Trochanteric bursitis, left hip M70.62 CPT Codes Coding - 63598 Large joint: 90922 - Large joint ([id number])
--- OUTSIDE RECORDS SUMMARY | 2024-09-12 13:20 | XMS_ITS | Patient Health Record ---
Author Organization [facility] Address [address] [place] [address] Care Team Providers Care Enterprise Analyst Name Role Phone JV MURILLO M.D. Primary Care Provider U hangsofiaLucita Moody Unavailable [phone] Allergies Allergen (clinical drug ingredient) Drug/Non Drug Allergy documented on EMR Reaction Allergy Type Onset Date Status amlodipine Amlodipine Besylate Swelling Drug Allergy Active Metoprolol & Diet Manage Prod Nausea Drug Allergy Active Penicillin Unknown Drug Allergy Active Substance with 3-ckliaou-3-methylgl utaryl-coenzyme A reductase inhibitor mechanism of action [...] W/U Status Risk Notes Problem Age-related osteoporosis (413506594) Age-related osteoporosis without current pathological fracture (M81.0) Active confirmed Problem Abnormal findings on diagnostic imaging of breast (065869395) Other abnormal and inconclusive findings on diagnostic imaging of breast (R92.8) Active confirmed Problem Hyperlipidemia (26903011) Other and unspecified hyperlipidemia (272.4) Active confirmed Major Problem Benign essential hypertension (6103537) Essential hypertension, benign (401.1) Active confirmed Major Problem Menopausal symptom (09804333) Symptomatic menopausal or female climacteric states (627.2) Active confirmed Major Problem Gynecological examination normal (290311138146073) Routine gynecological examination (V72.31) Active confirmed Major Problem Screening for malignant neoplasm of colon (441931407) Special screening for malignant neoplasms, colon (V76.51) [...] Coverage End Date MEDICARE [address] [facility] [place] [id number] GRETTA GRIFFITHS Self - patient is the insured MEDEX [address] [place] [address] [phone] [id number] GRETTA GRIFFITHS Self - patient is [...]
--- OUTSIDE RECORDS SUMMARY | 2024-09-12 13:20 | XMS_ITS | Patient Health Record ---
Author Organization [facility] Address [address] [place] [address] Care Team Providers Care Horticultural Specialty Grower Inside Name Role Phone Diogenes Medeiros Primary Care Provider Unavailabl e Allergies Allergen (clinical drug ingredient) Drug/Non Drug Allergy documented on EMR Reaction Allergy Type Onset Date Status amlodipine / atorvastatin amLODIPine-Atorvastat in Unknown Drug Allergy Active celecoxib CeleBREX Unknown Drug Allergy Active atorvastatin Lipitor Unknown Drug Allergy Acti ve lisinopril Lisinopril Unknown Drug Allergy Activ e Substance with 4-xxbheok-0-methylglutar yl-coenzyme A reductase inhibitor mechanism of action [...] Problem Status W/U Status Risk Notes Problem Acquired hallux valgus (98022762) Hallux valgus (acquired), right foot (M20.11) Active confirmed Problem Acquired hallux valgus (74114481) Hallux valgus (acquired), left foot (M20.12) Active confirmed Problem Left foot drop (finding) (13724217515976 5) Acquired left foot drop (M21.372) Active confirmed Problem 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
--- OUTSIDE RECORDS SUMMARY | 2024-09-12 13:20 | XMS_ITS | Clinical Summary ---
Author Organization [facility] Address [address] [place] [address] Phone Care Team Providers Care Brewer Helper Name Role Phone Diogenes Medeiros MD Primary Care Provider Allergies Active Allergy Reactions Criticality Noted Date [...] EDT - 06/14/2024 9:05 PM EDT Emergency [facility] Emergency [address] [place] [id number] Impacted cerumen of right ear (Primary Dx) [...] 12/09/2015 Cholesterol Screening (Lipid Panel) 11/29/2023 06/30/2016 Falls Risk Assessment 11/29/2023 Medicare Annual Wellness Visit 11/29/2023 Osteoporosis Screening (Bone Density Screening) 11/29/2023 Social Influencers of Health Screening 11/29/2023 Depression Screening 02/14/2024 Hypertension/CHF/CAD Annual BMP Blood Test 06/15/2024 COVID-19 [...] Procedure Name Priority Date/Time Associated Diagnosis Comments [id number], RSV, FLU A AND B QUALITATIVE RT-PCR, INTERNAL LAB STAT 06/14/2024 6:41 PM EDT from Last 3 Months Results * [id number], RSV, Influenza A and B qualitative RT-PCR (06/14/2024 6:41 PM EDT) Influenza A PCR Not Detected Not Detected LAB MICROBIOLOGY METHOD 06/14/2024 8:18 PM EDT [facility] Influenza B PCR Not Detected Not Detected LAB MICROBIOLOGY METHOD 06/14/2024 8:18 PM EDT [facility] RSV PCR Not Detected Not Detected LAB MICROBIOLOGY METHOD 06/14/2024 8:18 PM EDT [facility] SARS COV-2 Not Detected Not Detected LAB MICROBIOLOGY METHOD 06/14/2024 8:18 PM EDT [facility] Swab Both anterior nares / Unknown Non-blood Collection / Unknown 06/14/2024 6:41 PM EDT 06/14/2024 7:36 PM EDT Narrative [facility] - 06/14/2024 8:18 PM EDT Disclaimer: Testing was performed using the Palm GeneXpert Xpress SARS-CoV-2 _Flu_RSV PLUS PCR assay. [...] for Healthcare providers can be found at https://www.fda.gov/media/993309/download. Fact sheet for Healthcare patients can be found at https://www.fda.gov/media/888650/download. Edson Wilson MD LAB MICROBIOLOGY - GENERAL AIYANA HAYDEN Final Result [facility] ([facility] [address] [place] [address], from Last 3 Months Insurance MEDICARE [facility] Care Teams Brewer Helper Relationship Specialty Start Date End Date Diogenes Medeiros MD [address] [place] [id number] PCP - General Internal Medicine 02/19/24
--- OUTSIDE RECORDS SUMMARY | 2024-09-12 13:20 | XMS_ITS | Encounter Summary ---
Author Organization [facility] Address [address] [place] [address] Care Team Providers Care Bin Piler Name Role Phone Fitz Cruz MD Primary Care Provider [phone] Encounter Details Date Type Department Care Team (Late st Contact Info) Description 01/17/2017 Scanned Document [facility] Internal Medicine [facility]. [address] [address] External, Provider Social History Tobacco [...] on filedocumented in this encounter Care Teams Bin Piler Relationship Specialty Start Date End Date Fitz Cruz MD [address] [place] [phone] PCP - General Internal Medicine 11/04/16 04/09/17 documented as of this encounter
== END 2024-09-12 13:59 | disposition home or self-care (01) ==
LOC: HO.RHES 13:08
PROVIDERS: PCP Internal Medicine; Visit Provider Internal Medicine Rheumatology
DX: M70.62 Trochanteric bursitis, left hip (principal)

== ENCOUNTER → 2024-09-12 13:07 | Outpatient (BNVA) | payer MEDICARE, SELFPAY | PROVIDERS: PCP Internal Medicine; Visit Provider Internal Medicine Rheumatology | DX: M70.62 Trochanteric bursitis, left hip (principal); M25.552 Pain in left hip; M25.512 Pain in left shoulder; R29.6 Repeated falls; G89.29 Other chronic pain | CPT/HCPCS: 20610; 99212; J2003; J3300 ==

== ENCOUNTER 2024-12-04 10:21 | Outpatient (AMB) | payer MEDICARE, SELFPAY ==
--- NOTE | 2024-12-04 10:22 | MHC.OFFVIS ---
Vital Signs 12/04/24 10:23 Height 5 ft 2 in BP 122/76 Blood Pressure Location Rt brachial Position Sitting Pulse 70 Pulse Source Pulse Oximeter Pulse Oximetry (%) 98 Oxygen Delivery Method Room Air Intake Visit Reasons: 3mnth f/u Intake Note: Follow up Parkinsonism, unspecified Public Works Director Required: No Accompanied by: Sister in Law - Care Proxy Allergies Penicillins Allergy (Intermediate, Verified 12/04/24 10:23) Anaphylaxis diclofenac Allergy (Mild, Verified 12/04/24 10:23) Swelling NSAIDS (Non-Steroidal Anti-Inflamma Allergy (Mild, Verified 12/04/24 10:23) swapna blood pressure Medication List - Last Reconciled 12/04/24 by Lucille Hodgson MD aspirin (Adult Aspirin Regimen) 81 mg PO DAILY carbidopa-levodopa 25-100 mg 1 tab PO BID carbidopa-levodopa 25-100 mg ER 1 tab PO BEDTIME carvedilol 3.125 mg PO BID diclofenac sodium 1% 2 grams topical QID PRN ezetimibe (Zetia) 10 mg PO DAILY hydrochlorothiazide 12.5 mg PO DAILY leg brace (Knee Support Brace) As directed Right knee hinged brace Dx: osteoarthritis levothyroxine mcg PO losartan 25 mg PO DAILY mirtazapine 7.5 mg PO BEDTIME omega-3 fatty acids 1,000 mg PO DAILY pravastatin 10 mg PO BEDTIME pyridoxine (vitamin B6) 100 mg PO DAILY vibegron (Gemtesa) 75 mg PO DAILY vitamins A,C,H-iesv-tyzwfh 4,296 mcg-226 mg-90 mg (PreserVision AREDS) 1 cap PO BID HPI Comments Details: 83y/o female comes for follow up of possible parkinsons disease. Carbidopa/levodopa 25/100 bid helped. she also feels it helps with nocturia but she feels dizzy .she also reports restless legs mainly left leg . she has loss of appetite and does not eat.she had 1 episode of passing out - was at [facility] diagnosed with TIA . History form last visit-she also has rheumatoid arthritis - which affects her gait. she reports left leg weakness, left foot drop, left UE weakness for more than 2 years.. she reports feeling very tired and sleepy after a meal. she does not sleep well at night due to nocturia. she lives with health care proxy and gets GERIATRIC PSYCHIATRIST help. she has been developing gait balance issues for 4 years. 4 years ago she had vertigo , hearing loss and loss of balance. No tremors. SHe has thoracic vertebra fracture and also sacral pain she has high risk of falls- had a fall 10 days ago. 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 Unspecified premature depolarization Unspecified hearing loss, left ear Unspecified disorder of vestibular function, unspecified ear Other disorders of electrolyte and fluid balance, not elsewhere classified Atherosclerotic heart disease of [place] coronary artery without angina pectoris Essential (primary) hypertension Hyperlipidemia, unspecified Hypothyroidism, unspecified Elevated white blood cell count, unspecified Hypotension, unspecified Urinary tract infection, site not specified Syncope and collapse Hypo-osmolality and hyponatremia Difficulty in walking, not elsewhere classified Muscle weakness (generalized) Metabolic encephalopathy Parkinsonism Physical Exam Vital Signs: Last Vital Signs Pulse 70 12/04/24 10:23 BP 122/76 12/04/24 10:23 Pulse Ox 98 12/04/24 10:23 Oxygen Delivery Method Room Air 12/04/24 10:23 Const General: cooperative, comfortable and no acute distress Nutritional Appearance: average body habitus Orientation/consciousness: patient oriented x3 Neuro Other: Mildly decreased blink, facial expression left frozen shoulder Hypophonia no tremors FFM and foot taps - mild to moderate decreased L>R Gait very difficult to get up from chair - small steps ? left foot is weaker and gets stuck Mild increased tone in all extremities left LE weakness 3-4/5 Left UE 4+/5 General: patient oriented x3 and moves all extremities Cranial nerves: No Bilaterally intact EOM present, Yes Nystagmus not present, Yes Normal facial strength present and Yes Midline tongue present Cognition (Neuro): normal cognition Deep tendon reflexes (DTR's): Right triceps reflex intensity grade: 3+, Left triceps reflex intensity grade: 3+, Rt Biceps (C5, C6): 3+, Left biceps reflex intensity grade: 3+, Right brachioradialis reflex intensity grade: 3+, Left brachioradialis reflex intensity grade: 3+, Right patellar reflex intensity grade: 3+ and Left patellar reflex intensity grade: 3+ Assessment & Plan Assessment & Plan (1) Parkinsonism: Code(s): G20.C - Parkinsonism, unspecified Category: Medical Qualifiers: Parkinsonism type: unspecified Qualified Code(s): G20.C - Parkinsonism, unspecified Plan This was a counseling predominated session . Increase carbidopa/levodopa 25/100 1 tab bid - 7AM and 4pm and carbidopa/levodopa ER 25/100 qhs I will trial her on Mirtazapine 7.5 mg qhs for appetite and sleep. Medications: New carbidopa-levodopa 25-100 mg ER 1 tab PO BEDTIME 30 tabs 6RF mirtazapine 7.5 mg PO BEDTIME 30 tabs 6RF Changed From carbidopa-levodopa 25-100 mg 1 tab PO BID 60 tabs 6RF To carbidopa-levodopa 25-100 mg 7am and 4 pm 1 tab PO BID 60 tabs 6RF Coding Level of Care Code Est Pt Level 4 (86314) Complex EM visit Add On G2211 Diagnoses Parkinsonism, unspecified Parkinsonism type G20.C Parkinsonism type: unspecified
[2024-12-04 10:23] VITALS: BP 122/76; PULSE 70; O2SAT 98
--- OUTSIDE RECORDS SUMMARY | 2024-12-04 12:50 | XMS_ITS | Patient Health Record ---
Author Organization [facility] Address [address] [facility] [address] [place] [address] Care Team Providers Care Granite Fabricator Name Role Phone Diogenes Medeiros Primary Care Provider Unavailabl e Allergies Allergen (clinical drug ingredient) Drug/Non Drug Allergy documented on EMR Reaction Allergy Type Onset Date Status amlodipine / atorvastatin amLODIPine-Atorvastat in Unknown Drug Allergy Active celecoxib CeleBREX Unknown Drug Allergy Active atorvastatin Lipitor Unknown Drug Allergy Acti ve lisinopril Lisinopril Unknown Drug Allergy Activ e Substance with 8-wmklqws-0-methylglutar yl-coenzyme A reductase inhibitor mechanism of action [...] Status Risk Notes Problem Acquired hallux valgus (46776957) Hallux valgus (acquired), right foot (M20.11) Active confirmed Problem Acquired hallux valgus (97850894) Hallux valgus (acquired), left foot (M20.12) Active confirmed Problem Left foot drop (finding) (73170998377517 5) Acquired left foot drop (M21.372) Active confirmed Problem Metatarsus adductus (58817585) 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
--- OUTSIDE RECORDS SUMMARY | 2024-12-04 12:50 | XMS_ITS | Clinical Summary ---
Author Organization [facility] [address] [facility] Address [address] [place] [address] Phone Care Team Providers Care Fruit And Vegetable Classer Name Role Phone Diogenes Medeiros MD Primary Care Provider [phone] Allergies Active Allergy Reactions Criticality Noted Date [...] age to complete this topic Insurance MEDICARE [facility] Care Teams Fruit And Vegetable Classer Relationship Specialty Start Date End Date Diogenes Medeiros MD [address] [place] [address] PCP - General Internal Medicine 02/19/24
--- OUTSIDE RECORDS SUMMARY | 2024-12-04 12:50 | XMS_ITS | Encounter Summary ---
Author Organization [facility] Address [address] [place] [address] Care Team Providers Care Corporate Recruiter Name Role Phone Fitz Cruz MD Primary Care Provider [phone] Encounter Details Date Type Department Care Team (Late st Contact Info) Description 05/06/2014 Scanned Document [facility] [address] [place] [address] Sascha Gerber MD [address] [place] [phone] Social History Tobacco Use Types Packs/Day Years [...] on filedocumented in this encounter Care Teams Corporate Recruiter Relationship Specialty Start Date End Date Fitz Cruz MD [address] [place] [address] [address] [place] [address] PCP - General Internal Medicine 11/04/16 04/09/17 documented as of this encounter
--- OUTSIDE RECORDS SUMMARY | 2024-12-04 12:50 | XMS_ITS | Clinical Summary ---
Author Organization [address] Address [address] [place] [phone] Phone Care Team Providers Care Washer Repairman Name Role Phone Unavailable Primary Care Provider Unavailabl e Allergies Active Allergy Reactions Criticality Noted Date Comments Amlodipine High 11/13/2013 Retain fluids Celecoxib 12/10/2012 Lisinopril 01/22/2016 Metoprolol Tartrate Nausea Low 08/04/2013 Nsaids (Non-Steroidal Anti-Inflammatory Drug) 12/10/2012 Penicillins Anaphylaxis High 07/06/2012 Eqngaxn-Tox-Rew Reductase Inhibitors Medium 11/13/2013 Muscle pain-cramping Medications [...] breath) 08/04/2013 Elevated troponin 08/04/2013 09/25/2015 Immunizations Immunization Administration Dates Next Due Influenza, high-dose, split virus, trivalent,(65Yr+),injectable, preservative free 12/18/2015 Pneumococcal conjugate PCV 13 11/26/2014 Pneumococcal polysaccharide PPSV23 01/15/2014 Tdap 01/26/2015 Family History Medical History Relation Name Comments Heart disease Father Stroke Maternal Aunt Heart disease Maternal Cousin [place] Hypertension Mother Stroke Mother Cancer Paternal Grandmother breast cancer Hypertension Sister 1 Hypertension Sister 2 Relation Name Status Comments Father (Age 64) [place] Maternal Aunt Maternal Cousin Alive Mother (Age [...] 92 11/28/2016 12:27 PM EDT Temperature 36.9 C (98.4 F) 12/18/2015 9:02 AM EDT Respiratory Rate 20 01/22/2016 10:51 AM EST [...] 07/17/2015, 0 06/27/2015, 03/07/2014, Additional history exists Influenza vaccine 09/13/2024 12/18/2015, (Patient declined) Covid-19 vaccine series () 10/14/2024 Tetanus adult (Td q 10,TDAP once) 01/26/2025 01/26/2015 Osteoporosis screening (bone density) Addressed 01/17/2014 Overridden with the intention of not completing the topic Colon cancer screening, Colonoscopy Discontinued 04/07/2014 Pneumococcal Vaccine (50+ years) Completed 11/26/2014, 01/15/2014 Breast cancer screening Discontinued 03/16/2015, 01/17 Cervical cancer screening Discontinued Meningococcal B Vaccine Aged Out No l onger eligible based on patient's age to complete this topic Meningococcal Vaccine Aged Out No pretty jenna eligible based on patient's age to complete this topic Procedures Procedure Name Priority Date/Time Associated Diagnosis Comments LIPID PANEL Routine 06/30/2016 9:35 AM EDT Hyperlipidemia, unspecified hyperlipidemia type COMPREHENSIVE METABOLIC PANEL STAT 07/17/2015 1:57 PM EDT COLONOSCOPY (IMAGES) Routine 04/07/2014 from Last 3 Months or Most Recently Relevant to Health Maintenance Results * (ABNORMAL) Lipid panel (06/30/2016 9:35 AM EDT) Cholesterol 264(H) See Comment mg/dL 06/30/2016 12:46 PM EDT [facility] Comment: Total Cholesterol (mg/dL) Adults (>18 years) Children (<18 years) Desirable <200 <170 Borderline-High 200-239 170-199 High >=240 >=200 HDL 45 >=40 mg/dL 06/30/2016 12:46 PM EDT [facility] Triglycerides 284(H) See Comment mg/dL 06/30/2016 12:46 PM EDT [facility] Comment: Triglycerides (mg/dL) Adults (>18 years) Children (<18 years) Desirable <150 Not Established Borderline-High 150-199 Not Established High 200-499 Not Established Chol/HDL Ratio 5.9(H) <=5 06/30/2016 12:46 PM EDT [facility] LDL Calculated 162(H) See Comment mg/dL 06/30/2016 12:46 PM EDT [facility] Comment: LDL Cholesterol (mg/dL) Adults (>18 years) Children (<18 years) Desirable <100 <110 Above Desirable 100-129 Not Established Borderline-High 130-159 110-129 High 160-189 >=130 Very High >=190 Not Established Blood specimen (specimen) Venipuncture / Unknown 06/30/2016 9:35 AM EDT 06/30/2016 9:35 AM EDT Abdon Lepe MD LAB BLOOD ORDERABLES Final Result Performing Organization Address [facility]/State/[facility] Co de Phone Number [facility] [address] [place] [address] * (ABNORMAL) Comprehensive metabolic panel (07/17/2015 1:57 PM EDT) Glucose 132(H) 70 - 100 mg/dL [facility] BUN 18 7 - 20 mg/dL [facility] Creatinine 0.9 0.5 - 1.2 mg/dL [facility] Anion Gap 18(H) 7 - 16 [facility] CO2 23.5 22.0 - 30.0 mmol/L [facility] Chloride 95(L) 96 - 106 mmol/L [facility] Sodium 136 135 - 145 mmol/L [facility] Potassium 4.6 3.3 - 5.0 mmol/L [facility] Calcium 9.9 8.8 - 10.2 mg/dL [facility] Total Protein 7.1 6.0 - 8.3 g/dL [facility] Albumin 3.8 3.5 - 5.0 g/dL [facility] Globulin 3.3 2.3 - 3.5 g/dL [facility] A/G Ratio 1.2 1.0 - 2.2 [facility] Aspartate Aminotransferase (AST) 22 0 - 34 U/L [facility] Alanine Aminotransferase (ALT) 16 0 - 34 U/L [facility] Alkaline Phosphatase 77 30 - 130 U/L [facility] Total Bilirubin 0.28 <1.20 mg/dL [facility] Blood specimen (specimen) 07/17/2015 1:57 PM EDT Ines Benjamin MD LAB BLOOD ORDERABLES Final R esult [facility] [address] [place] [phone] * Colonoscopy (04/07/2014) Sascha Gerber MD GI PROCEDURE ORDERABLES Final Re sult from Last 3 Months or Most Recently Relevant to Health Maintenance Insurance MEDICARE [facility] MEDICARE [facility] MEDICARE [facility] MEDICARE [facility]
--- OUTSIDE RECORDS SUMMARY | 2024-12-04 12:50 | XMS_ITS | Encounter Summary ---
Author Organization [facility] Address [address] [place] [address] Care Team Providers Care Brim Pouncer Name Role Phone Fitz Cruz MD Primary Care Provider [phone] Encounter Details Date Type Department Care Team (Late st Contact Info) Description 01/17/2017 Scanned Document [facility]. [address] [address] External, Provider Social History Tobacco [...] on filedocumented in this encounter Care Teams Brim Pouncer Relationship Specialty Start Date End Date Fitz Cruz MD [address] [place] [phone] PCP - General Internal Medicine 11/04/16 04/09/17 documented as of this encounter
--- OUTSIDE RECORDS SUMMARY | 2024-12-04 12:51 | XMS_ITS | Patient Health Record ---
Author Organization [facility] Address [address] [facility] [address] [place] [address] Care Team Providers Care Marketing Communications Associate Name Role Phone JV MURILLO M.D. Primary Care Provider U hangsofiaLucita Moody Unavailable [phone] Allergies Allergen (clinical drug ingredient) Drug/Non Drug Allergy documented on EMR Reaction Allergy Type Onset Date Status amlodipine Amlodipine Besylate Swelling Drug Allergy Active Metoprolol & Diet Manage Prod Nausea Drug Allergy Active Penicillin Unknown Drug Allergy Active Substance with 7-azdnlxw-6-methylgl utaryl-coenzyme A reductase inhibitor mechanism of action [...] W/U Status Risk Notes Problem Age-related osteoporosis (623771121) Age-related osteoporosis without current pathological fracture (M81.0) Active confirmed Problem Abnormal findings on diagnostic imaging of breast (848028371) Other abnormal and inconclusive findings on diagnostic imaging of breast (R92.8) Active confirmed Problem Hyperlipidemia (36979068) Other and unspecified hyperlipidemia (272.4) Active confirmed Major Problem Benign essential hypertension (5512409) Essential hypertension, benign (401.1) Active confirmed Major Problem Menopausal symptom (09730692) Symptomatic menopausal or female climacteric states (627.2) Active confirmed Major Problem Gynecological examination normal (898917401895935) Routine gynecological examination (V72.31) Active confirmed Major Problem Screening for malignant neoplasm of colon (250514838) Special screening for malignant neoplasms, colon (V76.51) [...] Coverage End Date MEDICARE [address] [facility] [place] [id number] GRETTA GRIFFITHS Self - patient is the insured [employer] [address] [place] [address] [id number] GRETTA GRIFFITHS Self - patient is [...]
--- OUTSIDE RECORDS SUMMARY | 2024-12-04 12:51 | XMS_ITS | Encounter Summary ---
Author Organization [facility] Address [address] [place] [address] Care Team Providers Care Screwhead Polisher Name Role Phone Fitz Cruz MD Primary Care Provider [phone] Encounter Details Date Type Department Care Team (Late st Contact Info) Description 09/14/2015 Scanned Document [facility] [address] [place] [address] Adm/Consult, Hospitalist [address] [place] [address] Social History Tobacco Use Types Packs/Day Years [...] on filedocumented in this encounter Care Teams Screwhead Polisher Relationship Specialty Start Date End Date Fitz Cruz MD [address] [facility] [place] [facility] [address] [place] [phone] PCP - General Internal Medicine 11/04/16 04/09/17 documented as of this encounter
--- OUTSIDE RECORDS SUMMARY | 2024-12-04 12:51 | XMS_ITS | Encounter Summary ---
Author Organization [facility] Address [address] [place] [address] Care Team Providers Care Wash House Worker Name Role Phone Fitz Cruz MD Primary Care Provider [phone] Encounter Details Date Type Department Care Team (Late st Contact Info) Description 09/15/2015 Scanned Document [facility] [address] [place] [address] Adm/Consult, Hospitalist [address] [place] [phone] Social History Tobacco Use Types Packs/Day Years [...] on filedocumented in this encounter Care Teams Wash House Worker Relationship Specialty Start Date End Date Fitz Cruz MD [address] [facility] [address] [place] [phone] PCP - General Internal Medicine 11/04/16 04/09/17 documented as of this encounter
--- OUTSIDE RECORDS SUMMARY | 2024-12-04 12:51 | XMS_ITS | Encounter Summary ---
Author Organization [facility] Address [address] [place] [address] Care Team Providers Care Caregivers Non Medical Name Role Phone Fitz Cruz MD Primary Care Provider [phone] Encounter Details Date Type Department Care Team (Late st Contact Info) Description 01/21/2014 Scanned Document [facility] [address] [place] [phone] Priyanka Ontiveros MD [address] [place] [address] [place] [address] Social History Tobacco Use Types [...] MD LAB BLOOD ORDERABLES Fin al Result [facility] [place], [facility] documented in this encounter Visit Diagnoses Not on filedocumented in this encounter Care Teams Caregivers Non Medical Relationship Specialty Start Date End Date Fitz Cruz MD [address] [place] [facility] [address] [place] [phone] PCP - General Internal Medicine 11/04/16 04/09/17 documented as of this encounter
--- OUTSIDE RECORDS SUMMARY | 2024-12-04 12:51 | XMS_ITS | Encounter Summary ---
Author Organization [facility] Address [address] [place] [address] Care Team Providers Care Senior Production Supervisor Name Role Phone Fitz Cruz MD Primary Care Provider [phone] Reason for Referral * Imaging (Routine) - Closed Specialty Diagnoses / Procedures Referred By Contac t Referred To Contact Diagnostic Radiology Procedures CT Head wo IV Contrast [facility] [address] [address] Phone: tel: fax: Referral ID Status Reason Start Date Expiration Date Visits Re quested Visits Authorized [id number] Closed 09/17/2015 09/16/2016 1 1 Encounter Details Date Type Department Care Team (Late st Contact Info) Description 09/17/2015 Scanned Document [facility] [address] [address] ProviderBritni . Social History Tobacco Use Types [...] XR CHEST PA AND LATERAL Routine 09/14/2015 [place] CARDIAC STRESS TST,TRACING ONLY Routine 09/14/2015 BASIC METABOLIC PANEL Routine 09/14/2015 documented in this encounter Results * MN CARDIAC STRESS TST,TRACING ONLY (09/14/2015) Historical Provider [place] CARDIOVASCULAR SYSTEM SER VICES Final Result * Basic metabolic panel (09/14/2015) Blood specimen (specimen) Historical Provider LAB BLOOD ORDERABLES Final R esult [facility] * XR Chest PA and Lateral (09/14/2015) Anatomical Region Laterality Modality Chest Digital Radiogra phy [facility] Provider IMG DIAGNOSTIC IMAGING ORDER PAUL Final Result * CT Head wo IV Contrast (09/14/2015) Anatomical Region Laterality Modality Head, Ortho Head Computed Tomogr aphy Historical Provider IMG CT ORDERABLES Final Resu lt documented in this encounter Visit Diagnoses Not on filedocumented in this encounter Care Teams Senior Production Supervisor Relationship Specialty Start Date End Date Fitz Cruz MD 5 [facility] [address] [place] [address] PCP - General Internal Medicine 11/04/16 04/09/17 documented as of this encounter
--- OUTSIDE RECORDS SUMMARY | 2024-12-28 20:00 | XMS_ITS | Clinical Summary ---
Author Organization Unknown Care Team Providers Care Jar Filler Name Role Phone GUNNAR CARRANZA, MARY Unavailable Unavailable LORRAINE RN, FABIO Unavailable Unavailable JOSE LEVINN, MARIBETH Unavailable Unavail able IRMA PT, MARGARET Unavailable Unavailable CORINA LITHOGRAPHIC PLATEMAKER, YAEL Unavailable Unavailable RUDDY [address], THEODORE Unavailable Unavailable Payers Payer Name Policy Type Policy Number Effective Date Expira tion Date MEDICARE.NGS.PDGM [id number] Problems Condition Name Condition Details Condition Category Status Onset Date Resolution Date Last Treatment Date Treating Clinician Comments PARKINSONISM , UNSPECIFIED Active 10-29 00:00: 00 OTHER SPEECH DISTURBANCES Active 10-29 00:00: 00 ESSENTIAL (PRIMARY) HYPERTENSION Active 10-29 00:00: 00 WEAKNESS Active 10-29 00:00: 00 ATHSCL HEART DISEASE OF [place] CORONARY ARTERY W/O ANG PCTRS Active 10-29 [...] HYPERLIPIDEM IA, UNSPECIFIED Active 10-29 00:00: 00 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 Active 10-29 00:00: [...] 75 mcg tablet 10-28 00:00: 00 Yes [id number] HYPOTHYROID ISM 1 tablet DAILY 1 tablet DAILY (route: oral) Med Classific ation: Endocrine Gemtesa 75 mg tablet 10-27 00:00: 00 Yes [id number] OVERACTIVE BLADDER 1 tablet DAILY 1 tablet DAILY (route: oral) Med Classific ation: Genitouri nary Therapy carvedilol 3.125 mg tablet 10-26 00:00: 00 Yes [id number] HEART FAILURE 1 tablet TWICE A DAY 1 tablet TWICE A DAY (route: oral) Med Classific ation: Cardiovas cular Therapy Agents hydrochloro thiazide 12.5 mg tablet 10-17 00:00: 00 Yes [id number] EDEMA 1 tablet DAILY 1 tablet DAILY (route: oral) Med Classific ation: Cardiovas cular Therapy Agents losartan 25 mg tablet 8-25 00:00: 00 Yes [id number] HTN 1 tablet DAILY 1 tablet DAILY (route: oral) Med Classific ation: Cardiovas cular Therapy Agents Myrbetriq 25 mg tablet,exte nded release 822 00:00: 00 10-31 00:00 :00 No [id number] Per instruc tions EVERY DAY Per instructio ns EVERY DAY (route: oral) Med Classific ation: Genitouri nary Therapy chlorhexidi ne gluconate 0.12 % mouthwash 20 00:00: 00 10-31 00:00 :00 No [id number] Per instruc tions TWICE A DAY Per instructio ns TWICE A DAY (route: mucous membrane) Med Classific ation: Mouth-Thr oat-Denta l - Preparati ons aspirin 81 mg tablet 10-31 00:00: 00 Yes [id number] BLOOD THINNER 1 tablet DAILY 1 tablet DAILY (route: oral) Med Classific ation: Hematolog ical Agents carbidopa 10 mg-levodopa 100 mg tablet 08-30 00:00: 00 Yes [id number] PARKINSONS 1 tablet 2 TIMES DAILY 1 tablet 2 TIMES DAILY (route: oral) Med Classific ation: Central Nervous System Agents ezetimibe 10 mg tablet 10-31 00:00: 00 Yes [id number] HYPERLIPIDE NATE 1 tablet DAILY 1 tablet DAILY (route: oral) Med Classific ation: Cardiovas cular Therapy Agents [place] 3-6-9 1,200 mg capsule 10-31 00:00: 00 Yes [id number] SUPPLEMENT 1 capsule 2 TIMES DAILY 1 capsule 2 TIMES DAILY (route: oral) Med Classific ation: Cardiovas cular Therapy Agents pravastatin 10 mg tablet 10-31 00:00: 00 Yes [id number] HYPERLIPIDE NATE 1 tablet DAILY 1 tablet DAILY (route: oral) Med Classific ation: Cardiovas cular Therapy Agents PreserVisio n AREDS 2 Plus Multivit 200 mcg-15 mcg-5 mg-1 mg capsule 10-31 00:00: 00 Yes [id number] SUPPLEMENT 1 capsule 2 TIMES DAILY 1 capsule 2 TIMES DAILY (route: oral) Med Classific ation: Electroly te Balance-N utritiona l Products Vitamin B-6 100 mg tablet 10-31 00:00: 00 Yes [id number] SUPPLEMENT 1 tablet DAILY 1 tablet DAILY (route: oral) Med Classific ation: Electroly te Balance-N utritiona l Products Vital Signs Vital Name Observation Time Observation Value Commen ts Temperature 2024-12-03 12:10:00.000 97.6 [degF] Temperature 2024-11-29 [...] kg/m2 Height 2024-10-31 10:35:00.000 62 [in_us] Pulse 2024-12-03 12:10:00.000 80 /min Pulse 2024-11-29 14:25:00.000 68 /min Pulse 2024-11-26 12:01:00.000 64 /min Pulse 2024-11-20 09:48:00.000 60 /min Pulse 2024-11-19 14:58:00.000 70 /min Pulse 2024-11-18 11:08:00.000 69 /min Pulse 2024-11-14 11:12:00.000 67 /min Pulse 2024-11-12 13:20:00.000 72 /min Pulse 2024-11-07 10:32:00.000 71 /min Pulse 2024-11-04 13:20:00.000 62 /min Pulse 2024-10-31 10:35:00.000 68 /min O2 Saturation (%) 2024-12-03 12:10:00.000 97 % O2 Saturation (%) 2024-11-29 14:25:00.000 100 % O2 Saturation (%) 2024-11-26 12:01:00.000 96 % O2 Saturation (%) 2024-11-20 09:48:00.000 96 % O2 Saturation (%) 2024-11-19 14:58:00.000 97 % O2 Saturation (%) 2024-11-18 11:08:00.000 96 % O2 Saturation (%) 2024-11-04 13:20:00.000 96 % O2 Saturation (%) 2024-10-31 10:35:00.000 97 % Respirations 2024-12-03 12:10:00.000 18 /min Respirations 2024-11-29 14:25:00.000 18 /min Respirations 2024-11-26 12:01:00.000 18 /min Respirations 2024-11-20 09:48:00.000 18 /min Respirations 2024-11-19 14:58:00.000 18 /min Respirations 2024-11-18 11:08:00.000 18 /min Respirations 2024-11-14 11:12:00.000 18 /min Respirations 2024-11-12 13:20:00.000 18 /min Respirations 2024-11-07 10:32:00.000 18 /min Respirations 2024-11-04 13:20:00.000 17 /min Respirations 2024-10-31 10:35:00.000 18 /min Weight (lbs) 2024-10-31 10:35:00.000 125 [lb_av] Systolic Blood Pressure 2024-12-03 12:10:00.000 92 mm[ [...] 10:35:00.000 114 mm [Hg] Diastolic Blood Pressure 2024-12-03 12:10:00.000 [...] CONSULTING PHYSICIANS. RN TO OBSERVE AND ASSESS, SURGICAL INSTRUMENTS INSPECTOR/PRIME BROKER TO OBSERVE FOR RISK FOR FALLS AND INSTRUCT IN FALL PREVENTION, HOME SAFETY, MEDICATION MANAGEMENT, INFECTION PREVENTION, AND NUTRITION MANAGEMENT. RN/SURGICAL INSTRUMENTS INSPECTOR/PRIME BROKER NURSE MAY PERFORM O2 SATURATION LEVEL ON ADMISSION AND FOR RN TO ASSESS/SURGICAL INSTRUMENTS INSPECTOR TO OBSERVE PATIENT, WITH NOTIFICATION TO THE PHYSICIAN IF SATURATION IS 90% IN THE ABSENCE OF MORE SPECIFIC PARAMETERS FROM THE PHYSICIAN. AGENCY MAY PERFORM A RESUMPTION OF CARE VISIT FOLLOWING ANY HOSPITAL ADMISSION. RN/SURGICAL INSTRUMENTS INSPECTOR/PRIME BROKER TO MONITOR CO-MORBID CONDITIONS LISTED ON THE PLAN OF CARE AND ANY NEW CONDITIONS THAT PRESENT THEMSELVES DURING THIS EPISODE TO IDENTIFY CHANGES AND INTERVENE TO MINIMIZE COMPLICATIONS. [code = RN TO OBSERVE, ASSESS, EVALUATE, AND DEVELOP AN INDIVIDUALIZED PLAN OF CARE. AGENCY MAY ACCEPT ORDERS FROM CONSULTING PHYSICIANS. RN TO OBSERVE AND ASSESS, SURGICAL INSTRUMENTS INSPECTOR/PRIME BROKER TO OBSERVE FOR RISK FOR FALLS AND INSTRUCT IN FALL PREVENTION, HOME SAFETY, MEDICATION MANAGEMENT, INFECTION PREVENTION, AND NUTRITION MANAGEMENT. RN/SURGICAL INSTRUMENTS INSPECTOR/PRIME BROKER NURSE MAY PERFORM O2 SATURATION LEVEL ON ADMISSION AND FOR RN TO ASSESS/SURGICAL INSTRUMENTS INSPECTOR TO OBSERVE PATIENT, WITH NOTIFICATION TO THE PHYSICIAN IF SATURATION IS 90% IN THE ABSENCE OF MORE SPECIFIC PARAMETERS FROM THE PHYSICIAN. AGENCY MAY PERFORM A RESUMPTION OF CARE VISIT FOLLOWING ANY HOSPITAL ADMISSION. RN/SURGICAL INSTRUMENTS INSPECTOR/PRIME BROKER TO MONITOR CO-MORBID CONDITIONS LISTED ON THE PLAN OF CARE AND ANY NEW CONDITIONS THAT PRESENT THEMSELVES DURING THIS EPISODE TO IDENTIFY CHANGES AND INTERVENE TO MINIMIZE COMPLICATIONS.] Future Scheduled Test RISK FOR H OSPITALIZATION; RN TO ASSESS/TEACH, PRIME BROKER/SURGICAL INSTRUMENTS INSPECTOR TO OBSERVE/TEACH PATIENT/CAREGIVER ON RISK FOR HOSPITALIZATION/EMERGENCY ROOM VISITS, TEACH SIGNS AND SYMPTOMS THAT PUT PATIENT AT RISK, WHEN TO NOTIFY NURSE/PHYSICIAN OF COMPLICATIONS/DECLINE, AND WHEN TO CALL 911. [code = RISK FOR HOSPITALIZATION; RN TO ASSESS/TEACH, PRIME BROKER/SURGICAL INSTRUMENTS INSPECTOR TO OBSERVE/TEACH PATIENT/CAREGIVER ON RISK FOR HOSPITALIZATION/EMERGENCY ROOM VISITS, TEACH SIGNS AND SYMPTOMS THAT PUT PATIENT AT RISK, WHEN TO NOTIFY NURSE/PHYSICIAN OF COMPLICATIONS/DECLINE, AND WHEN TO CALL 911.] Future Scheduled Test MEDICATION MANAGEMENT; RN/SURGICAL INSTRUMENTS INSPECTOR/PRIME BROKER TO REVIEW MEDICATIONS FOR INTERACTIONS, EFFECTIVENESS OF DRUG THERAPY, AND SIGNS/SYMPTOMS OF ADVERSE REACTIONS. MAY INSTRUCT AND REINFORCE MEDICATION TEACHING RELATED TO THE USE OF MEDICATIONS, DOSAGE, FREQUENCY, PURPOSE, SIDE EFFECTS, AND TO REPORT COMPLICATIONS. [code = MEDICATION MANAGEMENT; RN/SURGICAL INSTRUMENTS INSPECTOR/PRIME BROKER TO REVIEW MEDICATIONS FOR INTERACTIONS, EFFECTIVENESS OF DRUG THERAPY, AND SIGNS/SYMPTOMS OF ADVERSE REACTIONS. MAY INSTRUCT AND REINFORCE MEDICATION TEACHING RELATED TO THE USE OF MEDICATIONS, DOSAGE, FREQUENCY, PURPOSE, SIDE EFFECTS, AND TO REPORT COMPLICATIONS.] Future Scheduled Test CARDIOVASC ULAR SYSTEM; RN TO ASSESS/TEACH, SURGICAL INSTRUMENTS INSPECTOR/PRIME BROKER TO OBSERVE/TEACH RELATED TO ALTERED CARDIOVASCULAR STATUS TO MINIMIZE COMPLICATIONS AND REDUCE HOSPITALIZATION. [code = CARDIOVASCULAR SYSTEM; RN TO ASSESS/TEACH, SURGICAL INSTRUMENTS INSPECTOR/PRIME BROKER TO OBSERVE/TEACH RELATED TO ALTERED CARDIOVASCULAR STATUS TO MINIMIZE COMPLICATIONS AND REDUCE HOSPITALIZATION.] Future Scheduled Test HYPERTENSI ON MANAGEMENT; RN TO ASSESS AND TEACH, SURGICAL INSTRUMENTS INSPECTOR/PRIME BROKER TO OBSERVE AND TEACH WARNING SIGNS AND SYMPTOMS TO AVOID HOSPITALIZATION. [code = HYPERTENSION MANAGEMENT; RN TO ASSESS AND TEACH, SURGICAL INSTRUMENTS INSPECTOR/PRIME BROKER TO OBSERVE AND TEACH WARNING SIGNS AND SYMPTOMS TO AVOID HOSPITALIZATION.] Future Scheduled Test NEUROLOGIC AL SYSTEM MANAGEMENT; RN TO ASSESS AND TEACH, PRIME BROKER/SURGICAL INSTRUMENTS INSPECTOR TO OBSERVE AND TEACH RELATED TO ALTERED NEUROLOGICAL STATUS TO MINIMIZE COMPLICATIONS AND REDUCE HOSPITALIZATION. [code = NEUROLOGICAL SYSTEM MANAGEMENT; RN TO ASSESS AND TEACH, PRIME BROKER/SURGICAL INSTRUMENTS INSPECTOR TO OBSERVE AND TEACH RELATED TO ALTERED NEUROLOGICAL STATUS TO MINIMIZE COMPLICATIONS AND REDUCE HOSPITALIZATION.] Future Scheduled Test SKIN INTEG RITY RN TO ASSESS AND TEACH, SURGICAL INSTRUMENTS INSPECTOR/PRIME BROKER TO OBSERVE AND TEACH INTEGUMENTARY STATUS TO IDENTIFY CHANGES AND INTERVENE TO MINIMIZE COMPLICATIONS. PROVIDE SKILLED TEACHING OF GENERAL WOUND AND SKIN CARE AND PREVENTION RELATED TO POTENTIAL FOR ALTERED SKIN INTEGRITY. [code = SKIN INTEGRITY RN TO ASSESS AND TEACH, SURGICAL INSTRUMENTS INSPECTOR/PRIME BROKER TO OBSERVE AND TEACH INTEGUMENTARY STATUS TO IDENTIFY CHANGES AND INTERVENE TO MINIMIZE COMPLICATIONS. PROVIDE SKILLED TEACHING OF GENERAL WOUND AND SKIN CARE AND PREVENTION RELATED TO POTENTIAL FOR ALTERED SKIN INTEGRITY.] Future Scheduled Test PAIN MANAG EMENT; RN TO ASSESS AND TEACH, PRIME BROKER/SURGICAL INSTRUMENTS INSPECTOR TO OBSERVE AND TEACH AND PROVIDE EDUCATION ON PAIN MANAGEMENT TECHNIQUES. [code = PAIN MANAGEMENT; RN TO ASSESS AND TEACH, PRIME BROKER/SURGICAL INSTRUMENTS INSPECTOR TO OBSERVE AND TEACH AND PROVIDE EDUCATION ON PAIN MANAGEMENT TECHNIQUES.] Future Scheduled Test FALL REDUC TION MANAGEMENT; RN TO ASSESS AND OBSERVE, SURGICAL INSTRUMENTS INSPECTOR/PRIME BROKER TO OBSERVE FALL RISK FACTORS AND EDUCATE PATIENT/CAREGIVER ON STRATEGIES TO MINIMIZE THE RISK OF FALLING. [code = FALL REDUCTION MANAGEMENT; RN TO ASSESS AND OBSERVE, SURGICAL INSTRUMENTS INSPECTOR/PRIME BROKER TO OBSERVE FALL RISK FACTORS AND EDUCATE [...] TO EVALUATE, OBSERVE / ASSESS, AND MONITOR, LITHOGRAPHIC PLATEMAKER TO OBSERVE AND MONITOR, PROVIDE SKILLED THERAPEUTIC INTERVENTION, ACTIVITY, EDUCATION, AND TRAINING TO ADDRESS; PT/LITHOGRAPHIC PLATEMAKER TO PROVIDE GAIT TRAINING FOR IMPROVED MOBILITY AND /OR TO NORMALIZE GAIT PATTERN NEUROMUSCULAR RE-EDUCATION / BALANCE / POSTURAL CONTROL (PT) THERAPEUTIC EXERCISES AND ESTABLISHING A HOME EXERCISE PROGRAM (PT/LITHOGRAPHIC PLATEMAKER) PT/LITHOGRAPHIC PLATEMAKER TO PROVIDE STAIR TRAINING BED TRANSFERS (PT/LITHOGRAPHIC PLATEMAKER) SIT TO/FROM STAND TRANSFERS (PT/LITHOGRAPHIC PLATEMAKER) PT / LITHOGRAPHIC PLATEMAKER TO MONITOR AND EDUCATE ON OXYGEN SATURATION DURING ADLS/IADLS, NOTIFY PHYSICIAN AND/OR THE RN CLINICAL MEAT SMOKER FOR PHYSICIAN NOTIFICATION AND IF O2 SATS BELOW PHYSICIAN ORDERED PARAMETERS AFTER 10 MIN OF REST PT/LITHOGRAPHIC PLATEMAKER TO IDENTIFY FALL RISK FACTORS; EDUCATE THE PATIENT/CAREGIVER ON WAYS TO REDUCE FALL RISK FACTORS AND ESTABLISH HOME EXERCISE PROGRAM TO MINIMIZE FALL RISK. MAY TEACH THE PATIENT FLOOR RECOVERY WHEN CLINICALLY APPROPRIATE PT / LITHOGRAPHIC PLATEMAKER MAY EDUCATE ON PAIN MANAGEMENT CLINICALLY INDICATED, INCLUDING NON-PHARMACOLOGICAL PAIN REDUCTION TECHNIQUES. [code = AGENCY MAY PERFORM A RESUMPTION OF CARE VISIT FOLLOWING ANY HOSPITAL ADMISSION. PT TO EVALUATE, OBSERVE / ASSESS, AND MONITOR, LITHOGRAPHIC PLATEMAKER TO OBSERVE AND MONITOR, PROVIDE SKILLED THERAPEUTIC INTERVENTION, ACTIVITY, EDUCATION, AND TRAINING TO ADDRESS; PT/LITHOGRAPHIC PLATEMAKER TO PROVIDE GAIT TRAINING FOR IMPROVED MOBILITY AND /OR TO NORMALIZE GAIT PATTERN NEUROMUSCULAR RE-EDUCATION / BALANCE / POSTURAL CONTROL (PT) THERAPEUTIC EXERCISES AND ESTABLISHING A HOME EXERCISE PROGRAM (PT/LITHOGRAPHIC PLATEMAKER) PT/LITHOGRAPHIC PLATEMAKER TO PROVIDE STAIR TRAINING BED TRANSFERS (PT/LITHOGRAPHIC PLATEMAKER) SIT TO/FROM STAND TRANSFERS (PT/LITHOGRAPHIC PLATEMAKER) PT / LITHOGRAPHIC PLATEMAKER TO MONITOR AND EDUCATE ON OXYGEN SATURATION DURING ADLS/IADLS, NOTIFY PHYSICIAN AND/OR THE RN CLINICAL MEAT SMOKER FOR PHYSICIAN NOTIFICATION AND IF O2 SATS BELOW PHYSICIAN ORDERED PARAMETERS AFTER 10 MIN OF REST PT/LITHOGRAPHIC PLATEMAKER TO IDENTIFY FALL RISK FACTORS; EDUCATE THE PATIENT/CAREGIVER ON WAYS TO REDUCE FALL RISK FACTORS AND ESTABLISH HOME EXERCISE PROGRAM TO MINIMIZE FALL RISK. MAY TEACH THE PATIENT FLOOR RECOVERY WHEN CLINICALLY APPROPRIATE PT / LITHOGRAPHIC PLATEMAKER MAY EDUCATE ON PAIN MANAGEMENT CLINICALLY INDICATED, [...] TOLERANCE PATIENT WILL IMPROVE HOUSEHOLD TRANSFERS FROM CGA AND MIN A TO INDEPENDENT IN 4 [...] End Date/Time Encounter Type Admission Type Attending [facility] Care Department Encounter ID Discharge Date Discharge Status Discharge Condition Discharge Reason Percent Goals Met 2024-10-31 00:00:00 2024-12-29 00:00:00 Outpatient NEW ADMISSION [facility] [id number] 22.22
== END 2024-12-04 11:21 | disposition home or self-care (01) ==
LOC: HO.HSMS 10:22
PROVIDERS: PCP Internal Medicine; Visit Provider Psychiatry & Neurology Neurology
DX: G20.C Parkinsonism, unspecified (principal)
CPT/HCPCS: 99214; G2211

== ENCOUNTER → 2024-12-04 10:21 | Outpatient (BNVA) | payer MEDICARE, SELFPAY | PROVIDERS: PCP Internal Medicine; Visit Provider Psychiatry & Neurology Neurology | DX: G20.C Parkinsonism, unspecified (principal); Z79.899 Other long term (current) drug therapy | CPT/HCPCS: 99212 ==

== ENCOUNTER 2024-12-24 12:43 | Outpatient (AMB) | payer MEDICARE, SELFPAY ==
--- OUTSIDE RECORDS SUMMARY | 2014-07-07 19:00 | XMS_ITS | Continuity of Care Document ---
Author Organization [id number] Address [address] [place] [address] Phone Care Team Providers Care Stockroom Keeper Name Role Phone Gretel Orellana Unavailable Unavailable Procedures Procedure Date OBSERVATION CARE DISCHARGE DAY MGMT OBSERVATION INITIAL EM COMPREH/HIGH 70 M INS Advance Directives Directive Yes / No Effective Date File Name No Information Encounters Encounter Description Practice Location Reason(s) For Visit Diagnoses Date Provider Providers Copied on Encounter OBSERVATION CARE DISCHARGE DAY [facility] [id number] [facility], [address], [place] [address], tel:[phone] [facility] No Information Gio Majano. [address] [place] [address], [facility], . tel:[phone] Referring Provider: Joaquina Salazar, [address] [place] [address], [facility]. tel:[phone] OBSERVATION INITIAL EM COMPREH/HIGH 70 MINS [id number] [facility], [address], [place] [address], tel:[phone] [facility] No Information Martin Kunz. [address] [place] [address], . tel:[phone] Referring Provider: Joaquina Salazar, [address] [place] [address], [facility]. tel:[phone] Family History Family Member Type Diagnosis Age At Onset No Information Payers Payer name Insurance type Covered democrat ID Authoriza tion(s) Medicare Part B Participatin g Providers [id number] [facility] [id number] Social History Type Description Quantity Date Captured Comments Sex Female Smoking Status No Information Chief Complaint And Reason For Visit No Information Reason For Referral Reason For Referral No Information History Of Present Illness Encounter Date Complaint History Of Prese nt Illness No Information Functional Status Date Functional Assessmen t No Information Instructions Date Instruction Additional Infor mation No Information Assessments Type Assessment Date No Information Patient Care Teams Name Effective Dates (start - stop) Status Members No Information
[2024-12-24 12:52] VITALS: BP 130/70; PULSE 66; O2SAT 99
--- NOTE | 2024-12-24 12:52 | MHC.OFFVIS ---
Vital Signs 12/24/24 12:52 Height 5 ft 2 in BP 130/70 Blood Pressure Location Rt brachial Position Sitting Pulse 66 Pulse Source Pulse Oximeter Pulse Oximetry (%) 99 Oxygen Delivery Method Room Air Intake Visit Reasons: 3 Months Intake Note: Patient presents today for RA/PSA follow up Accompanied by: Sister Allergies Penicillins Allergy (Intermediate, Verified 12/24/24 12:52) Anaphylaxis diclofenac Allergy (Mild, Verified 12/24/24 12:52) Swelling NSAIDS (Non-Steroidal Anti-Inflamma Allergy (Mild, Verified 12/24/24 12:52) rasie blood pressure HPI HPI 3 Months: Details: Pain improved after left trochanteric bursa cortisone injection. She has been doing exercises for shoulder movement at home. She reports that physical therapy keep her home exercise program with exercises from head to toe . She continues to have difficulty with her shoulders. Right knee brace does not fit. 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 Unspecified premature depolarization Unspecified hearing loss, left ear Unspecified disorder of vestibular function, unspecified ear Other disorders of electrolyte and fluid balance, not elsewhere classified Atherosclerotic heart disease of [place] coronary artery without angina pectoris Essential (primary) hypertension Hyperlipidemia, unspecified Hypothyroidism, unspecified Elevated white blood cell count, unspecified Hypotension, unspecified Urinary tract infection, site not specified Syncope and collapse Hypo-osmolality and hyponatremia Difficulty in walking, not elsewhere classified Muscle weakness (generalized) Metabolic encephalopathy Parkinsonism Physical Exam Vital Signs: Last Vital Signs Pulse 66 12/24/24 12:52 BP 130/70 12/24/24 12:52 Pulse Ox 99 12/24/24 12:52 Oxygen Delivery Method Room Air 12/24/24 12:52 Const Other: General: Comfortable Skin: No lesions seen MSK: Tenderness of bilateral trochanteric bursa. She has abduction of left shoulder 90 degrees with good internal external rotation Office Procedures AMB Joint Injection/Aspiration Joint Injection/Aspiration Details: Left shoulder joint Prep: site was prepped using aseptic technique Injected: 40 mg of, Kenalog, with 1 mL of and 1% plain lidocaine Procedure: Informed verbal consent was obtained. The patient tolerated the procedure well. Postprocedure protocol was discussed with patient. Coding 06753 - Large joint Procedure code (CPT) selection complete Office Meds lidocaine (PF) 10 mg/mL (1 %) injection solution Performing Provider: Salas Trent MD Performing Location: [facility] Administered by: Priscilla Frank RN on 12/24/24 15:57 Dose Route Admin Location Dispensed Lot Number Expiration Date [facility] Filling Station Laborer 1 mL Infiltration 2 mL [id number] 07/13/26 01783-555-82 [employer] Total Dispensed Waste 2 mL 50 % Kenalog 40 mg/mL suspension for injection Performing Provider: Salas Trent MD Performing Location: [facility] Administered by: Priscilla Frank RN on 12/24/24 15:57 Dose Route Admin Location Dispensed Lot Number Expiration Date [facility] Filling Station Laborer 40 mg intra-articular 1 mL [id number] 08/12/26 [address]-0 [employer] Total Dispensed Waste 1 mL 0 % Assessment & Plan Assessment & Plan (1) Knee osteoarthritis: Comment: Uncontrolled pain. Limited range of motion. Code(s): M17.9 - Osteoarthritis of knee, unspecified Category: Medical Plan: Right knee hinged brace prescribed Continue home exercise program Return to clinic in 3 months (2) Left shoulder pain: Comment: With history of rotator cuff tendinopathy and limited range of motion. She has a left frozen shoulder. Failed PT. Code(s): M25.512 - Pain in left shoulder Category: Medical Qualifiers: Chronicity: chronic Qualified Code(s): M25.512 - Pain in left shoulder; G89.29 - Other chronic pain Plan: Patient received left shoulder cortisone injection this visit Continue home exercise program Continue diclofenac gel 1% applied to affected area q.i.d. PRN Return to clinic in 3 months Orders: Orders AMB Joint Injection/Aspiration Today M17.9 - Osteoarthritis of knee, unspecified Medications: New leg brace (Knee Support Brace) As directed R knee hinged brace Dx: knee osteoarthritis 1 ea 0RF M17.9 - Osteoarthritis of knee, unspecified leg brace (Knee Support Brace) As directed R knee hinged brace Dx: knee osteoarthritis 1 ea 0RF M17.9 - Osteoarthritis of knee, unspecified Changed From diclofenac sodium 1% apply to affected area every 4-6 hours PRN pain 2 grams topical QID PRN 100 grams 2RF pain To diclofenac sodium 1% apply to affected area every 4-6 hours PRN pain 4 grams topical QID PRN 100 grams 5RF pain Coding Level of Care Code Est Pt Level 3 (14811) Complex EM visit Add On G2211 Diagnoses Knee osteoarthritis M17.9 Chronic left shoulder pain M25.512; G89.29 Chronicity: chronic CPT Codes Coding - 64829 Large joint: 23959 - Large joint ([id number])
--- OUTSIDE RECORDS SUMMARY | 2024-12-24 14:27 | XMS_ITS | Encounter Summary ---
Author Organization [facility] Address [address] [place] [address] Care Team Providers Care Bin Tripper Operator Name Role Phone Fitz Cruz MD Primary Care Provider [phone] Encounter Details Date Type Department Care Team (Late st Contact Info) Description 01/17/2017 Scanned Document [facility]. [address] [address] External, Provider Social History Tobacco [...] filedocumented in this encounter Care Teams Bin Tripper Operator Relationship Specialty Start Date End Date Fitz Cruz MD [address] [place] [phone] PCP - General Internal Medicine 11/04/16 04/09/17 documented as of this encounter
--- OUTSIDE RECORDS SUMMARY | 2024-12-24 14:27 | XMS_ITS | Patient Health Record ---
Author Organization [facility] Address [address] [facility] [address] [place] [address] Care Team Providers Care Management Professional Name Role Phone Diogenes Medeiros Primary Care Provider Unavailabl e Allergies Allergen (clinical drug ingredient) Drug/Non Drug Allergy documented on EMR Reaction Allergy Type Onset Date Status amlodipine / atorvastatin amLODIPine-Atorvastat in Unknown Drug Allergy Active celecoxib CeleBREX Unknown Drug Allergy Active atorvastatin Lipitor Unknown Drug Allergy Acti ve lisinopril Lisinopril Unknown Drug Allergy Activ e Substance with 9-muspnch-1-methylglutar yl-coenzyme A reductase inhibitor mechanism of action [...] Status Risk Notes Problem Acquired hallux valgus (36597860) Hallux valgus (acquired), right foot (M20.11) Active confirmed Problem Acquired hallux valgus (96753062) Hallux valgus (acquired), left foot (M20.12) Active confirmed Problem Left foot drop (finding) (19058533600259 5) Acquired left foot drop (M21.372) Active confirmed Problem 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
--- OUTSIDE RECORDS SUMMARY | 2024-12-24 14:28 | XMS_ITS | Encounter Summary ---
Author Organization [facility] Address [address] [place] [phone] Care Team Providers Care Technical Writer Name Role Phone Fitz Cruz MD Primary Care Provider [phone] Encounter Details Date Type Department Care Team (Late st Contact Info) Description 09/15/2015 Scanned Document Lab for [facility] [address] [place] [address] Adm/Consult, Hospitalist [address] [place] [phone] Social History Tobacco Use Types Packs/Day Years [...] on filedocumented in this encounter Care Teams Technical Writer Relationship Specialty Start Date End Date Fitz Cruz MD 5 [facility] [address] [place] [phone] PCP - General Internal Medicine 11/04/16 04/09/17 documented as of this encounter
--- OUTSIDE RECORDS SUMMARY | 2024-12-24 14:28 | XMS_ITS | Encounter Summary ---
Author Organization [facility] and [facility] Address [address] [place] [phone] Care Team Providers Care Personnel Coordinator Name Role Phone Fitz Cruz MD Primary Care Provider [phone] Encounter Details Date Type Department Care Team (Late st Contact Info) Description 05/06/2014 Scanned Document [facility] [address] [place] [address] Sascha Gerber MD [address] [place] [phone] Social History Tobacco Use Types Packs/Day Years [...] on filedocumented in this encounter Care Teams Personnel Coordinator Relationship Specialty Start Date End Date Fitz Cruz MD [address] [place] [address] [address] [place] [address] PCP - General Internal Medicine 11/04/16 04/09/17 documented as of this encounter
--- OUTSIDE RECORDS SUMMARY | 2024-12-24 14:28 | XMS_ITS | Encounter Summary ---
Author Organization [facility] and [facility] Address [address] [place] [phone] Care Team Providers Care Nutritional Health Coach Name Role Phone Fitz Cruz MD Primary Care Provider [phone] Reason for Referral * Imaging (Routine) - Closed Specialty Diagnoses / Procedures Referred By Contac t Referred To Contact Diagnostic Radiology Procedures CT Head wo IV Contrast [facility] [address] [address] Phone: tel: fax: Referral ID Status Reason Start Date Expiration Date Visits Re quested Visits Authorized [id number] Closed 09/17/2015 09/16/2016 1 1 Encounter Details Date Type Department Care Team (Late st Contact Info) Description 09/17/2015 Scanned Document [facility] [address] [address] ProviderBritni . Social History Tobacco Use Types [...] XR CHEST PA AND LATERAL Routine 09/14/2015 RI CARDIAC STRESS TST,TRACING ONLY Routine 09/14/2015 BASIC METABOLIC PANEL Routine 09/14/2015 documented in this encounter Results * RI CARDIAC STRESS TST,TRACING ONLY (09/14/2015) Historical Provider RI CARDIOVASCULAR SYSTEM SER VICES Final Result * Basic metabolic panel (09/14/2015) Blood specimen (specimen) Historical Provider LAB BLOOD ORDERABLES Final R esult [facility] * XR Chest PA and Lateral (09/14/2015) Anatomical Region Laterality Modality Chest Digital Radiogra phy [facility] Provider IMG DIAGNOSTIC IMAGING ORDER PAUL Final Result * CT Head wo IV Contrast (09/14/2015) Anatomical Region Laterality Modality Head, Ortho Head Computed Tomogr aphy Historical Provider IMG CT ORDERABLES Final Resu lt documented in this encounter Visit Diagnoses Not on filedocumented in this encounter Care Teams Nutritional Health Coach Relationship Specialty Start Date End Date Fitz Cruz MD 5 [facility] [address] [place] [phone] PCP - General Internal Medicine 11/04/16 04/09/17 documented as of this encounter
--- OUTSIDE RECORDS SUMMARY | 2024-12-24 14:28 | XMS_ITS | Clinical Summary ---
Author Organization [facility] [address] [facility] Address [address] [place] [address] Phone Care Team Providers Care Shipping Agent Name Role Phone Diogenes Medeiros MD Primary [...] age to complete this topic Insurance MEDICARE [facility] Care Teams Shipping Agent Relationship Specialty Start Date End Date Diogenes Medeiros MD [address] [place] [phone] PCP - General Internal Medicine 02/19/24
--- OUTSIDE RECORDS SUMMARY | 2024-12-24 14:28 | XMS_ITS | Encounter Summary ---
Author Organization [facility] Address [address] [place] [phone] Care Team Providers Care Software Tester Name Role Phone Fitz Cruz MD Primary Care Provider [phone] Encounter Details Date Type Department Care Team (Late st Contact Info) Description 01/21/2014 Scanned Document [facility] [address] [place] [phone] Priyanka Ontiveros MD [address] [place] [address] [place] [address] Social History Tobacco Use Types [...] MD LAB BLOOD ORDERABLES Fin al Result [facility] [place], [place], [facility] documented in this encounter Visit Diagnoses Not on filedocumented in this encounter Care Teams Software Tester Relationship Specialty Start Date End Date Fitz Cruz MD [address] [facility] [address] [place] [phone] PCP - General Internal Medicine 11/04/16 04/09/17 documented as of this encounter
--- OUTSIDE RECORDS SUMMARY | 2024-12-24 14:28 | XMS_ITS | Encounter Summary ---
Author Organization [facility] and [facility] Address [address] [place] [phone] Care Team Providers Care Laborer Name Role Phone Fitz Cruz MD Primary Care Provider [phone] Encounter Details Date Type Department Care Team (Late st Contact Info) Description 09/14/2015 Scanned Document Lab for [facility] [address] [place] [address] Adm/Consult, Hospitalist [address] [place] [phone] Social History Tobacco Use Types Packs/Day Years [...] on filedocumented in this encounter Care Teams Laborer Relationship Specialty Start Date End Date Fitz Cruz MD 5 [facility] [address] [place] [phone] PCP - General Internal Medicine 11/04/16 04/09/17 documented as of this encounter
--- OUTSIDE RECORDS SUMMARY | 2024-12-24 14:28 | XMS_ITS | Clinical Summary ---
Author Organization [address] Address [address] [place] [phone] Phone Care Team Providers Care Wastewater Treatment Plant Supervisor Name Role Phone Unavailable Primary Care Provider Unavailabl e Allergies Active Allergy Reactions Criticality Noted Date Comments Amlodipine High 11/13/2013 Retain fluids Celecoxib 12/10/2012 Lisinopril 01/22/2016 Metoprolol Tartrate Nausea Low 08/04/2013 Nsaids (Non-Steroidal Anti-Inflammatory Drug) 12/10/2012 Penicillins Anaphylaxis High 07/06/2012 Lofduna-Eqi-Mky Reductase Inhibitors Medium 11/13/2013 Muscle pain-cramping Medications [...] Stroke Maternal Aunt Heart disease Maternal Cousin CT Hypertension Mother Stroke Mother Cancer Paternal Grandmother breast cancer Hypertension Sister 1 Hypertension Sister 2 Relation Name Status Comments Father (Age 64) [place] Maternal Aunt Maternal Cousin Alive Mother (Age [...] 09/13/2024 12/18/2015, (Patient declined) Covid-19 vaccine series ( season) 2024 Tetanus adult (Td q 10,TDAP once) 01/26/2025 [...] See Comment mg/dL 06/30/2016 12:46 PM EDT [facility] Comment: Total Cholesterol (mg/dL) Adults (>18 years) Children (<18 years) Desirable <200 <170 Borderline-High 200-239 170-199 High >=240 >=200 HDL 45 >=40 mg/dL 06/30/2016 12:46 PM EDT [facility] Triglycerides 284(H) See Comment mg/dL 06/30/2016 12:46 PM EDT [facility] Comment: Triglycerides (mg/dL) Adults (>18 years) Children (<18 years) Desirable <150 Not Established Borderline-High 150-199 Not Established High 200-499 Not Established Chol/HDL Ratio 5.9(H) <=5 06/30/2016 12:46 PM EDT [facility] LDL Calculated 162(H) See Comment mg/dL 06/30/2016 12:46 PM EDT [facility] Comment: LDL Cholesterol (mg/dL) Adults (>18 years) Children (<18 years) Desirable <100 <110 Above Desirable 100-129 Not Established Borderline-High 130-159 110-129 High 160-189 >=130 Very High >=190 Not Established Blood specimen (specimen) Venipuncture / Unknown 06/30/2016 9:35 AM EDT 06/30/2016 9:35 AM EDT Abdon Lepe MD LAB BLOOD ORDERABLES Final Result Performing Organization Address [facility]/State/[facility] Co de Phone Number [facility] [address] [place] [address] * (ABNORMAL) Comprehensive metabolic panel (07/17/2015 1:57 PM EDT) Glucose 132(H) 70 - 100 mg/dL [facility] BUN 18 7 - 20 mg/dL [facility] Creatinine 0.9 0.5 - 1.2 mg/dL [facility] Anion Gap 18(H) 7 - 16 [facility] CO2 23.5 22.0 - 30.0 mmol/L [facility] Chloride 95(L) 96 - 106 mmol/L [facility] Sodium 136 135 - 145 mmol/L [facility] Potassium 4.6 3.3 - 5.0 mmol/L [facility] Calcium 9.9 8.8 - 10.2 mg/dL [facility] Total Protein 7.1 6.0 - 8.3 g/dL [facility] Albumin 3.8 3.5 - 5.0 g/dL [facility] Globulin 3.3 2.3 - 3.5 g/dL [facility] A/G Ratio 1.2 1.0 - 2.2 [facility] Aspartate Aminotransferase (AST) 22 0 - 34 U/L [facility] Alanine Aminotransferase (ALT) 16 0 - 34 U/L [facility] Alkaline Phosphatase 77 30 - 130 U/L [facility] Total Bilirubin 0.28 <1.20 mg/dL [facility] Blood specimen (specimen) 07/17/2015 1:57 PM EDT Ines Benjamin MD LAB BLOOD ORDERABLES Final R esult [facility] [address] [place] [phone] * Colonoscopy (04/07/2014) Sascha Gerber MD GI PROCEDURE ORDERABLES Final Re sult from Last 3 Months or Most Recently Relevant to Health Maintenance Insurance MEDICARE [facility] MEDICARE [facility] MEDICARE [facility] MEDICARE [facility]
--- OUTSIDE RECORDS SUMMARY | 2024-12-24 14:28 | XMS_ITS | Patient Health Record ---
Author Organization [facility] Address [address] [place] [address] Care Team Providers Care Coal Feeder Operator Name Role Phone JV MURILLO M.D. Primary Care Provider U hangsofiaLucita Moody Unavailable [phone] Allergies Allergen (clinical drug ingredient) Drug/Non Drug Allergy documented on EMR Reaction Allergy Type Onset Date Status amlodipine Amlodipine Besylate Swelling Drug Allergy Active Metoprolol & Diet Manage Prod Nausea Drug Allergy Active Penicillin Unknown Drug Allergy Active Substance with 1-krshfpd-0-methylgl utaryl-coenzyme A reductase inhibitor mechanism of action [...] W/U Status Risk Notes Problem Age-related osteoporosis (867810283) Age-related osteoporosis without current pathological fracture (M81.0) Active confirmed Problem Abnormal findings on diagnostic imaging of breast (692986472) Other abnormal and inconclusive findings on diagnostic imaging of breast (R92.8) Active confirmed Problem Hyperlipidemia (95171016) Other and unspecified hyperlipidemia (272.4) Active confirmed Major Problem Benign essential hypertension (4366134) Essential hypertension, benign (401.1) Active confirmed Major Problem Menopausal symptom (59525472) Symptomatic menopausal or female climacteric states (627.2) Active confirmed Major Problem Gynecological examination normal (913200697982892) Routine gynecological examination (V72.31) Active confirmed Major Problem Screening for malignant neoplasm of colon (345119001) Special screening for malignant neoplasms, colon (V76.51) [...] Coverage End Date MEDICARE [address] [facility] [place] [id number] [phone] [id number] GRETTA GRIFFITHS Self - patient is the insured [employer] [address] [place] [address] [phone] [id number] GRETTA GRIFFITHS Self - patient is [...]
--- OUTSIDE RECORDS SUMMARY | 2024-12-28 19:00 | XMS_ITS | Clinical Summary ---
Author Organization Unknown Care Team Providers Care Field Appraiser Name Role Phone GUNNAR CARRANZA, MARY Unavailable Unavailable LORRAINE RN, FABIO Unavailable Unavailable JOSE LEVINN, MARIBETH Unavailable Unavail able IRMA PT, MARGARET Unavailable Unavailable [employer] RECREATION OFFICER, YAEL Unavailable Unavailable RUDDY DUMAS [address], THEODORE Unavailable Unavailable Payers Payer Name Policy Type Policy Number Effective Date Expira tion Date MEDICARE.NGS.PDGM [id number] Problems Condition Name Condition Details Condition Category Status Onset Date Resolution Date Last Treatment Date Treating Clinician Comments PARKINSONISM , UNSPECIFIED Active 10-29 00:00: 00 OTHER SPEECH DISTURBANCES Active 10-29 00:00: 00 ESSENTIAL (PRIMARY) HYPERTENSION Active 10-29 00:00: 00 WEAKNESS Active 10-29 00:00: 00 ATHSCL HEART DISEASE OF [place] CORONARY ARTERY W/O ANG PCTRS Active 10-29 00:00: 00 PRIMARY GENERALIZED (OSTEO)ARTHR ITIS Active 10-29 00:00: 00 Oth intvrt disc degen, lum rgn w/o lum bck or lw extrm pain Active 10-29 00:00: 00 GASTRO-ESOPH AGEAL REFLUX DISEASE WITHOUT ESOPHAGITIS Active 10-29 00:00: 00 HYPOTHYROIDI SM, UNSPECIFIED Active 10-29 00:00: 00 MIXED INCONTINENCE Active 10-29 00:00: 00 OVERACTIVE BLADDER Active 10-29 00:00: 00 SNSRNRL HEAR LOSS, UNI, LEFT EAR, W UNRESTR HEAR CNTRA SIDE Active 10-29 00:00: 00 AGE-RELATED OSTEOPOROSIS W/O CURRENT PATHOLOGICAL FRACTURE Active 10-29 00:00: 00 HYPERLIPIDEM IA, UNSPECIFIED Active 10-29 00:00: 00 SKILLED NURSING (CURRENT) USE OF ASPIRIN Active 10-29 00:00: 00 PRSNL HX OF TIA (TIA), AND CEREB INFRC W/O RESID DEFICITS Active 10-29 00:00: 00 PERSONAL HISTORY OF COVID-19 Active 10-29 00:00: 00 PERSONAL HISTORY OF NICOTINE DEPENDENCE Active 10-29 00:00: 00 ACQUIRED ABSENCE OF OTHER ORGANS Active 10-29 00:00: 00 Allergies, Adverse Reactions, Alerts Allergy Name Allergy Type Status Severity Reaction(s) Onset Date Inactive Date Treating Clinician Comments AMLODIPINE Propensity to adverse reactions Active 11-01 06:25: 20 ATORVASTATIN Propensity to adverse reactions Active 11-01 06:25: 34 CELEBREX Propensity to adverse reactions Active 11-01 06:24: 30 LIPITOR Propensity to adverse reactions Active 11-01 06:24: 12 LISINOPRIL Propensity to adverse reactions Active 11-01 06:23: 46 METOPROLOL Propensity to adverse reactions Active 11-01 06:24: 57 STATINS-HMG Propensity to adverse reactions Active 11-01 06:24: 43 VERAPAMIL Propensity to adverse reactions Active 11-01 06:23: 20 Medications Ordered Medication Name Filled Medication Name Start Date Stop Date Current Medication? Ordering Clinician Indication Dosage Frequency Signature (SIG) Comments Components levothyroxi ne 75 mcg tablet 10-28 00:00: 00 Yes [id number] HYPOTHYROID ISM 1 tablet DAILY 1 tablet DAILY (route: oral) Med Classific ation: Endocrine Gemtesa 75 mg tablet 10-27 00:00: 00 Yes [id number] OVERACTIVE BLADDER 1 tablet DAILY 1 tablet DAILY (route: oral) Med Classific ation: Genitouri nary Therapy carvedilol 3.125 mg tablet 10-26 00:00: 00 Yes [id number] HEART FAILURE 1 tablet TWICE A DAY 1 tablet TWICE A DAY (route: oral) Med Classific ation: Cardiovas cular Therapy Agents hydrochloro thiazide 12.5 mg tablet 10-17 00:00: 00 Yes [id number] EDEMA 1 tablet DAILY 1 tablet DAILY (route: oral) Med Classific ation: Cardiovas cular Therapy Agents losartan 25 mg tablet 8-25 00:00: 00 Yes [id number] HTN 1 tablet DAILY 1 tablet DAILY (route: oral) Med Classific ation: Cardiovas cular Therapy Agents Myrbetriq 25 mg tablet,exte nded release 822 00:00: 00 10-31 00:00 :00 No [id number] Per instruc tions EVERY DAY Per instructio ns EVERY DAY (route: oral) Med Classific ation: Genitouri nary Therapy chlorhexidi ne gluconate 0.12 % mouthwash 20 00:00: 00 10-31 00:00 :00 No [id number] Per instruc tions TWICE A DAY Per instructio ns TWICE A DAY (route: mucous membrane) Med Classific ation: Mouth-Thr oat-Denta l - Preparati ons aspirin 81 mg tablet 10-31 00:00: 00 Yes [id number] BLOOD THINNER 1 tablet DAILY 1 tablet DAILY (route: oral) Med Classific ation: Hematolog ical Agents carbidopa 10 mg-levodopa 100 mg tablet 08-30 00:00: 00 Yes [id number] PARKINSONS 1 tablet 2 TIMES DAILY 1 tablet 2 TIMES DAILY (route: oral) Med Classific ation: Central Nervous System Agents ezetimibe 10 mg tablet 10-31 00:00: 00 Yes [id number] HYPERLIPIDE NATE 1 tablet DAILY 1 tablet DAILY (route: oral) Med Classific ation: Cardiovas cular Therapy Agents [place] 3-6-9 1,200 mg capsule 10-31 00:00: 00 Yes [id number] SUPPLEMENT 1 capsule 2 TIMES DAILY 1 capsule 2 TIMES DAILY (route: oral) Med Classific ation: Cardiovas cular Therapy Agents pravastatin 10 mg tablet 10-31 00:00: 00 Yes [id number] HYPERLIPIDE NATE 1 tablet DAILY 1 tablet DAILY (route: oral) Med Classific ation: Cardiovas cular Therapy Agents PreserVisio n AREDS 2 Plus Multivit 200 mcg-15 mcg-5 mg-1 mg capsule 10-31 00:00: 00 Yes [id number] SUPPLEMENT 1 capsule 2 TIMES DAILY 1 capsule 2 TIMES DAILY (route: oral) Med Classific ation: Electroly te Balance-N utritiona l Products Vitamin B-6 100 mg tablet 10-31 00:00: 00 Yes [id number] SUPPLEMENT 1 tablet DAILY 1 tablet DAILY (route: oral) Med Classific ation: Electroly te Balance-N utritiona l Products Vital Signs Vital Name Observation Time Observation Value Commen ts Temperature 2024-12-20 17:32:00.000 98.1 [degF] Temperature 2024-12-19 09:36:00.000 97.2 [degF] Temperature 2024-12-17 10:58:00.000 97.4 [degF] Temperature 2024-12-10 10:22:00.000 97.3 [degF] Temperature 2024-12-05 12:46:00.000 98.6 [degF] Temperature 2024-12-03 12:10:00.000 97.6 [degF] Temperature 2024-11-29 14:25:00.000 97 [degF] Temperature 2024-11-26 12:01:00.000 97.4 [degF] Temperature 2024-11-20 09:48:00.000 96.9 [degF] Temperature 2024-11-19 14:58:00.000 98.4 [degF] Temperature 2024-11-18 11:08:00.000 98.1 [degF] Temperature 2024-11-14 11:12:00.000 98.2 [degF] Temperature 2024-11-12 13:20:00.000 98.6 [degF] Temperature 2024-11-07 10:32:00.000 98 [degF] Temperature 2024-11-04 13:20:00.000 98.1 [degF] Temperature 2024-10-31 10:35:00.000 98.1 [degF] BMI (%) 2024-10-31 10:35:00.000 22 kg/m2 Height 2024-10-31 10:35:00.000 62 [in_us] Pulse 2024-12-20 17:32:00.000 69 /min Pulse 2024-12-19 09:36:00.000 67 /min Pulse 2024-12-17 10:58:00.000 62 /min Pulse 2024-12-10 10:22:00.000 69 /min Pulse 2024-12-05 12:46:00.000 72 /min Pulse 2024-12-03 12:10:00.000 80 /min Pulse 2024-11-29 14:25:00.000 68 /min Pulse 2024-11-26 12:01:00.000 64 /min Pulse 2024-11-20 09:48:00.000 60 /min Pulse 2024-11-19 14:58:00.000 70 /min Pulse 2024-11-18 11:08:00.000 69 /min Pulse 2024-11-14 11:12:00.000 67 /min Pulse 2024-11-12 13:20:00.000 72 /min Pulse 2024-11-07 10:32:00.000 71 /min Pulse 2024-11-04 13:20:00.000 62 /min Pulse 2024-10-31 10:35:00.000 68 /min O2 Saturation (%) 2024-12-20 17:32:00.000 97 % O2 Saturation (%) 2024-12-19 09:36:00.000 96 % O2 Saturation (%) 2024-12-17 10:58:00.000 97 % O2 Saturation (%) 2024-12-10 10:22:00.000 96 % O2 Saturation (%) 2024-12-05 12:47:00.000 98 % O2 Saturation (%) 2024-12-03 12:10:00.000 97 % O2 Saturation (%) 2024-11-29 14:25:00.000 100 % O2 Saturation (%) 2024-11-26 12:01:00.000 96 % O2 Saturation (%) 2024-11-20 09:48:00.000 96 % O2 Saturation (%) 2024-11-19 14:58:00.000 97 % O2 Saturation (%) 2024-11-18 11:08:00.000 96 % O2 Saturation (%) 2024-11-04 13:20:00.000 96 % O2 Saturation (%) 2024-10-31 10:35:00.000 97 % Respirations 2024-12-20 17:32:00.000 18 /min Respirations 2024-12-19 09:36:00.000 18 /min Respirations 2024-12-17 10:58:00.000 18 /min Respirations 2024-12-10 10:22:00.000 18 /min Respirations 2024-12-05 12:46:00.000 20 /min Respirations 2024-12-03 12:10:00.000 18 /min Respirations 2024-11-29 14:25:00.000 18 /min Respirations 2024-11-26 12:01:00.000 18 /min Respirations 2024-11-20 09:48:00.000 18 /min Respirations 2024-11-19 14:58:00.000 18 /min Respirations 2024-11-18 11:08:00.000 18 /min Respirations 2024-11-14 11:12:00.000 18 /min Respirations 2024-11-12 13:20:00.000 18 /min Respirations 2024-11-07 10:32:00.000 18 /min Respirations 2024-11-04 13:20:00.000 17 /min Respirations 2024-10-31 10:35:00.000 18 /min Weight (lbs) 2024-12-05 12:55:00.000 126 [lb_av] Weight (lbs) 2024-10-31 10:35:00.000 125 [lb_av] Systolic Blood Pressure 2024-12-20 17:32:00.000 108 mm [Hg] Systolic Blood Pressure 2024-12-19 09:36:00.000 102 mm [Hg] Systolic Blood Pressure 2024-12-17 10:58:00.000 96 mm[ Hg] Systolic Blood Pressure 2024-12-10 10:22:00.000 106 mm [Hg] Systolic Blood Pressure 2024-12-05 12:46:00.000 132 mm [Hg] Systolic Blood Pressure 2024-12-03 12:10:00.000 92 mm[ Hg] Systolic Blood Pressure 2024-11-29 14:25:00.000 110 mm [Hg] Systolic Blood Pressure 2024-11-26 12:01:00.000 108 mm [Hg] Systolic Blood Pressure 2024-11-20 09:48:00.000 108 mm [Hg] Systolic Blood Pressure 2024-11-19 14:58:00.000 118 mm [Hg] Systolic Blood Pressure 2024-11-18 11:08:00.000 108 mm [Hg] Systolic Blood Pressure 2024-11-14 11:12:00.000 120 mm [Hg] Systolic Blood Pressure 2024-11-12 13:20:00.000 110 mm [Hg] Systolic Blood Pressure 2024-11-07 10:32:00.000 118 mm [Hg] Systolic Blood Pressure 2024-11-04 13:20:00.000 104 mm [Hg] Systolic Blood Pressure 2024-10-31 10:35:00.000 114 mm [Hg] Diastolic Blood Pressure 2024-12-20 17:32:00.000 60 mm [Hg] Diastolic Blood Pressure 2024-12-19 09:36:00.000 56 mm [Hg] Diastolic Blood Pressure 2024-12-17 10:58:00.000 54 mm [Hg] Diastolic Blood Pressure 2024-12-10 10:22:00.000 62 mm [Hg] Diastolic Blood Pressure 2024-12-05 12:46:00.000 74 mm [Hg] Diastolic Blood Pressure 2024-12-03 12:10:00.000 60 mm [Hg] Diastolic Blood Pressure 2024-11-29 14:25:00.000 60 mm [Hg] Diastolic Blood Pressure 2024-11-26 12:01:00.000 70 mm [Hg] Diastolic Blood Pressure 2024-11-20 09:48:00.000 60 mm [Hg] Diastolic Blood Pressure 2024-11-19 14:58:00.000 62 mm [Hg] Diastolic Blood Pressure 2024-11-18 11:08:00.000 62 mm [Hg] Diastolic Blood Pressure 2024-11-14 11:12:00.000 60 mm [Hg] Diastolic Blood Pressure 2024-11-12 13:20:00.000 60 mm [Hg] Diastolic Blood Pressure 2024-11-07 10:32:00.000 68 mm [Hg] Diastolic Blood Pressure 2024-11-04 13:20:00.000 64 mm [Hg] Diastolic Blood Pressure 2024-10-31 10:35:00.000 60 mm [Hg] Plan of Treatment Planned Activity Planned Date Details Comments Future Scheduled Test RN TO OBSE RVE, ASSESS, EVALUATE, AND DEVELOP AN INDIVIDUALIZED PLAN OF CARE. AGENCY MAY ACCEPT ORDERS FROM CONSULTING PHYSICIANS. RN TO OBSERVE AND ASSESS, PERFUMER/PATIENT TRANSITION SPECIALIST TO OBSERVE FOR RISK FOR FALLS AND INSTRUCT IN FALL PREVENTION, HOME SAFETY, MEDICATION MANAGEMENT, INFECTION PREVENTION, AND NUTRITION MANAGEMENT. RN/PERFUMER/PATIENT TRANSITION SPECIALIST NURSE MAY PERFORM O2 SATURATION LEVEL ON ADMISSION AND FOR RN TO ASSESS/PERFUMER TO OBSERVE PATIENT, WITH NOTIFICATION TO THE PHYSICIAN IF SATURATION IS 90% IN THE ABSENCE OF MORE SPECIFIC PARAMETERS FROM THE PHYSICIAN. AGENCY MAY PERFORM A RESUMPTION OF CARE VISIT FOLLOWING ANY HOSPITAL ADMISSION. RN/PERFUMER/PATIENT TRANSITION SPECIALIST TO MONITOR CO-MORBID CONDITIONS LISTED ON THE PLAN OF CARE AND ANY NEW CONDITIONS THAT PRESENT THEMSELVES DURING THIS EPISODE TO IDENTIFY CHANGES AND INTERVENE TO MINIMIZE COMPLICATIONS. [code = RN TO OBSERVE, ASSESS, EVALUATE, AND DEVELOP AN INDIVIDUALIZED PLAN OF CARE. AGENCY MAY ACCEPT ORDERS FROM CONSULTING PHYSICIANS. RN TO OBSERVE AND ASSESS, PERFUMER/PATIENT TRANSITION SPECIALIST TO OBSERVE FOR RISK FOR FALLS AND INSTRUCT IN FALL PREVENTION, HOME SAFETY, MEDICATION MANAGEMENT, INFECTION PREVENTION, AND NUTRITION MANAGEMENT. RN/PERFUMER/PATIENT TRANSITION SPECIALIST NURSE MAY PERFORM O2 SATURATION LEVEL ON ADMISSION AND FOR RN TO ASSESS/PERFUMER TO OBSERVE PATIENT, WITH NOTIFICATION TO THE PHYSICIAN IF SATURATION IS 90% IN THE ABSENCE OF MORE SPECIFIC PARAMETERS FROM THE PHYSICIAN. AGENCY MAY PERFORM A RESUMPTION OF CARE VISIT FOLLOWING ANY HOSPITAL ADMISSION. RN/PERFUMER/PATIENT TRANSITION SPECIALIST TO MONITOR CO-MORBID CONDITIONS LISTED ON THE PLAN OF CARE AND ANY NEW CONDITIONS THAT PRESENT THEMSELVES DURING THIS EPISODE TO IDENTIFY CHANGES AND INTERVENE TO MINIMIZE COMPLICATIONS.] Future Scheduled Test RISK FOR H OSPITALIZATION; RN TO ASSESS/TEACH, PATIENT TRANSITION SPECIALIST/PERFUMER TO OBSERVE/TEACH PATIENT/CAREGIVER ON RISK FOR HOSPITALIZATION/EMERGENCY ROOM VISITS, TEACH SIGNS AND SYMPTOMS THAT PUT PATIENT AT RISK, WHEN TO NOTIFY NURSE/PHYSICIAN OF COMPLICATIONS/DECLINE, AND WHEN TO CALL 911. [code = RISK FOR HOSPITALIZATION; RN TO ASSESS/TEACH, PATIENT TRANSITION SPECIALIST/PERFUMER TO OBSERVE/TEACH PATIENT/CAREGIVER ON RISK FOR HOSPITALIZATION/EMERGENCY ROOM VISITS, TEACH SIGNS AND SYMPTOMS THAT PUT PATIENT AT RISK, WHEN TO NOTIFY NURSE/PHYSICIAN OF COMPLICATIONS/DECLINE, AND WHEN TO CALL 911.] Future Scheduled Test MEDICATION MANAGEMENT; RN/PERFUMER/PATIENT TRANSITION SPECIALIST TO REVIEW MEDICATIONS FOR INTERACTIONS, EFFECTIVENESS OF DRUG THERAPY, AND SIGNS/SYMPTOMS OF ADVERSE REACTIONS. MAY INSTRUCT AND REINFORCE MEDICATION TEACHING RELATED TO THE USE OF MEDICATIONS, DOSAGE, FREQUENCY, PURPOSE, SIDE EFFECTS, AND TO REPORT COMPLICATIONS. [code = MEDICATION MANAGEMENT; RN/PERFUMER/PATIENT TRANSITION SPECIALIST TO REVIEW MEDICATIONS FOR INTERACTIONS, EFFECTIVENESS OF DRUG THERAPY, AND SIGNS/SYMPTOMS OF ADVERSE REACTIONS. MAY INSTRUCT AND REINFORCE MEDICATION TEACHING RELATED TO THE USE OF MEDICATIONS, DOSAGE, FREQUENCY, PURPOSE, SIDE EFFECTS, AND TO REPORT COMPLICATIONS.] Future Scheduled Test CARDIOVASC ULAR SYSTEM; RN TO ASSESS/TEACH, PERFUMER/PATIENT TRANSITION SPECIALIST TO OBSERVE/TEACH RELATED TO ALTERED CARDIOVASCULAR STATUS TO MINIMIZE COMPLICATIONS AND REDUCE HOSPITALIZATION. [code = CARDIOVASCULAR SYSTEM; RN TO ASSESS/TEACH, PERFUMER/PATIENT TRANSITION SPECIALIST TO OBSERVE/TEACH RELATED TO ALTERED CARDIOVASCULAR STATUS TO MINIMIZE COMPLICATIONS AND REDUCE HOSPITALIZATION.] Future Scheduled Test HYPERTENSI ON MANAGEMENT; RN TO ASSESS AND TEACH, PERFUMER/PATIENT TRANSITION SPECIALIST TO OBSERVE AND TEACH WARNING SIGNS AND SYMPTOMS TO AVOID HOSPITALIZATION. [code = HYPERTENSION MANAGEMENT; RN TO ASSESS AND TEACH, PERFUMER/PATIENT TRANSITION SPECIALIST TO OBSERVE AND TEACH WARNING SIGNS AND SYMPTOMS TO AVOID HOSPITALIZATION.] Future Scheduled Test NEUROLOGIC AL SYSTEM MANAGEMENT; RN TO ASSESS AND TEACH, PATIENT TRANSITION SPECIALIST/PERFUMER TO OBSERVE AND TEACH RELATED TO ALTERED NEUROLOGICAL STATUS TO MINIMIZE COMPLICATIONS AND REDUCE HOSPITALIZATION. [code = NEUROLOGICAL SYSTEM MANAGEMENT; RN TO ASSESS AND TEACH, PATIENT TRANSITION SPECIALIST/PERFUMER TO OBSERVE AND TEACH RELATED TO ALTERED NEUROLOGICAL STATUS TO MINIMIZE COMPLICATIONS AND REDUCE HOSPITALIZATION.] Future Scheduled Test SKIN INTEG RITY RN TO ASSESS AND TEACH, PERFUMER/PATIENT TRANSITION SPECIALIST TO OBSERVE AND TEACH INTEGUMENTARY STATUS TO IDENTIFY CHANGES AND INTERVENE TO MINIMIZE COMPLICATIONS. PROVIDE SKILLED TEACHING OF GENERAL WOUND AND SKIN CARE AND PREVENTION RELATED TO POTENTIAL FOR ALTERED SKIN INTEGRITY. [code = SKIN INTEGRITY RN TO ASSESS AND TEACH, PERFUMER/PATIENT TRANSITION SPECIALIST TO OBSERVE AND TEACH INTEGUMENTARY STATUS TO IDENTIFY CHANGES AND INTERVENE TO MINIMIZE COMPLICATIONS. PROVIDE SKILLED TEACHING OF GENERAL WOUND AND SKIN CARE AND PREVENTION RELATED TO POTENTIAL FOR ALTERED SKIN INTEGRITY.] Future Scheduled Test PAIN MANAG EMENT; RN TO ASSESS AND TEACH, PATIENT TRANSITION SPECIALIST/PERFUMER TO OBSERVE AND TEACH AND PROVIDE EDUCATION ON PAIN MANAGEMENT TECHNIQUES. [code = PAIN MANAGEMENT; RN TO ASSESS AND TEACH, PATIENT TRANSITION SPECIALIST/PERFUMER TO OBSERVE AND TEACH AND PROVIDE EDUCATION ON PAIN MANAGEMENT TECHNIQUES.] Future Scheduled Test FALL REDUC TION MANAGEMENT; RN TO ASSESS AND OBSERVE, PERFUMER/PATIENT TRANSITION SPECIALIST TO OBSERVE FALL RISK FACTORS AND EDUCATE PATIENT/CAREGIVER ON STRATEGIES TO MINIMIZE THE RISK OF FALLING. [code = FALL REDUCTION MANAGEMENT; RN TO ASSESS AND OBSERVE, PERFUMER/PATIENT TRANSITION SPECIALIST TO OBSERVE FALL RISK FACTORS AND EDUCATE PATIENT/CAREGIVER ON STRATEGIES TO MINIMIZE THE RISK OF FALLING.] Future Scheduled Test PHYSICAL T HERAPIST TO EVALUATE FOR HEP, STRENGTHENING [code = PHYSICAL THERAPIST TO EVALUATE FOR HEP, STRENGTHENING] Future Scheduled Test SPEECH THE RAPIST TO EVALUATE FOR IMPROVED SPEECH AND SWALLOWING. [code = SPEECH THERAPIST TO EVALUATE FOR IMPROVED SPEECH AND SWALLOWING.] Future Scheduled Test AGENCY MAY PERFORM A RESUMPTION OF CARE VISIT FOLLOWING ANY HOSPITAL ADMISSION. PT TO EVALUATE, OBSERVE / ASSESS, AND MONITOR, RECREATION OFFICER TO OBSERVE AND MONITOR, PROVIDE SKILLED THERAPEUTIC INTERVENTION, ACTIVITY, EDUCATION, AND TRAINING TO ADDRESS; PT/RECREATION OFFICER TO PROVIDE GAIT TRAINING FOR IMPROVED MOBILITY AND /OR TO NORMALIZE GAIT PATTERN NEUROMUSCULAR RE-EDUCATION / BALANCE / POSTURAL CONTROL (PT) THERAPEUTIC EXERCISES AND ESTABLISHING A HOME EXERCISE PROGRAM (PT/RECREATION OFFICER) PT/RECREATION OFFICER TO PROVIDE STAIR TRAINING BED TRANSFERS (PT/RECREATION OFFICER) SIT TO/FROM STAND TRANSFERS (PT/RECREATION OFFICER) PT / RECREATION OFFICER TO MONITOR AND EDUCATE ON OXYGEN SATURATION DURING ADLS/IADLS, NOTIFY PHYSICIAN AND/OR THE RN CLINICAL LICENSED REACTOR OPERATOR FOR PHYSICIAN NOTIFICATION AND IF O2 SATS BELOW PHYSICIAN ORDERED PARAMETERS AFTER 10 MIN OF REST PT/RECREATION OFFICER TO IDENTIFY FALL RISK FACTORS; EDUCATE THE PATIENT/CAREGIVER ON WAYS TO REDUCE FALL RISK FACTORS AND ESTABLISH HOME EXERCISE PROGRAM TO MINIMIZE FALL RISK. MAY TEACH THE PATIENT FLOOR RECOVERY WHEN CLINICALLY APPROPRIATE PT / RECREATION OFFICER MAY EDUCATE ON PAIN MANAGEMENT CLINICALLY INDICATED, INCLUDING NON-PHARMACOLOGICAL PAIN REDUCTION TECHNIQUES. [code = AGENCY MAY PERFORM A RESUMPTION OF CARE VISIT FOLLOWING ANY HOSPITAL ADMISSION. PT TO EVALUATE, OBSERVE / ASSESS, AND MONITOR, RECREATION OFFICER TO OBSERVE AND MONITOR, PROVIDE SKILLED THERAPEUTIC INTERVENTION, ACTIVITY, EDUCATION, AND TRAINING TO ADDRESS; PT/RECREATION OFFICER TO PROVIDE GAIT TRAINING FOR IMPROVED MOBILITY AND /OR TO NORMALIZE GAIT PATTERN NEUROMUSCULAR RE-EDUCATION / BALANCE / POSTURAL CONTROL (PT) THERAPEUTIC EXERCISES AND ESTABLISHING A HOME EXERCISE PROGRAM (PT/RECREATION OFFICER) PT/RECREATION OFFICER TO PROVIDE STAIR TRAINING BED TRANSFERS (PT/RECREATION OFFICER) SIT TO/FROM STAND TRANSFERS (PT/RECREATION OFFICER) PT / RECREATION OFFICER TO MONITOR AND EDUCATE ON OXYGEN SATURATION DURING ADLS/IADLS, NOTIFY PHYSICIAN AND/OR THE RN CLINICAL LICENSED REACTOR OPERATOR FOR PHYSICIAN NOTIFICATION AND IF O2 SATS BELOW PHYSICIAN ORDERED PARAMETERS AFTER 10 MIN OF REST PT/RECREATION OFFICER TO IDENTIFY FALL RISK FACTORS; EDUCATE THE PATIENT/CAREGIVER ON WAYS TO REDUCE FALL RISK FACTORS AND ESTABLISH HOME EXERCISE PROGRAM TO MINIMIZE FALL RISK. MAY TEACH THE PATIENT FLOOR RECOVERY WHEN CLINICALLY APPROPRIATE PT / RECREATION OFFICER MAY EDUCATE ON PAIN MANAGEMENT CLINICALLY INDICATED, INCLUDING NON-PHARMACOLOGICAL PAIN REDUCTION TECHNIQUES.] Goal Patient Goal - BE HOME, MOVE BETTER Goal Provider Goal - A PLAN OF CARE WILL BE ESTABLISHED THAT MEETS THE PATIENT S NEEDS. PATIENT WILL DEMONSTRATE OXYGEN SATURATION WITHIN NORMAL LIMITS OR PATIENT S OPTIMAL LEVEL ESTABLISHED BY THE PHYSICIAN THROUGHOUT CARE. CHANGES TO CO-MORBID CONDITIONS AND ANY NEW CONDITIONS WILL BE IDENTIFIED AND REPORTED TO THE PHYSICIAN. Goal Provider Goal - PATIENT/CAREGIVER WILL VERBALIZE UNDERSTANDING OF SIGNS AND SYMPTOMS THAT PUT THE PATIENT AT RISK FOR HOSPITALIZATION /EMERGENCY ROOM VISITS, WHEN TO NOTIFY NURSE/PHYSICIAN OF COMPLICATIONS/DECLINE AND WHEN TO CALL 911. Goal Provider Goal - PATIENT/CAREGIVER TO VERBALIZE, AND CONSISTENTLY DEMONSTRATE EFFECTIVE, SAFE MANAGEMENT OF MEDICATION INCLUDING KNOWLEDGE OF EFFECTIVENESS, POTENTIAL SIDE EFFECTS AND DRUG REACTIONS AND WHEN TO CONTACT THE APPROPRIATE CARE PROVIDER. PATIENT/CAREGIVER WILL BE ABLE TO VERBALIZE UNDERSTANDING OF MEDICATION REGIMEN AND ACCURATELY TAKE MEDICATIONS PRESCRIBED WITHOUT ADVERSE EFFECTS BY 12/29/24. Goal Provider Goal - PATIENT / CAREGIVER WILL VERBALIZE/DEMONSTRATE UNDERSTANDING OF MEASURES TO MANAGE ALTERED CARDIOVASCULAR STATUS BY END OF EPISODE. Goal Provider Goal - PATIENT / CAREGIVER WILL VERBALIZE/DEMONSTRATE AN ABILITY TO ADHERE TO SELF-MANAGEMENT OF HTN TO MINIMIZE COMPLICATIONS AND AVOID HOSPITALIZATION BY END OF EPISODE. Goal Provider Goal - PATIENT / CAREGIVER WILL VERBALIZE/DEMONSTRATE UNDERSTANDING OF MEASURES TO MANAGE ALTERED NEUROLOGICAL STATUS BY 12/29/24. Goal Provider Goal - CHANGES IN SKIN INTEGRITY STATUS WILL BE IDENTIFIED AND REPORTED TO THE PHYSICIAN FOR PROMPT INTERVENTION. PATIENT / CAREGIVER WILL VERBALIZE/DEMONSTRATE ADEQUATE KNOWLEDGE OF INTEGUMENTARY STATUS AND APPROPRIATE MEASURES TO PROMOTE SKIN INTEGRITY AND PREVENT INJURY BY 12/29/24. Goal Provider Goal - PATIENT / CAREGIVER WILL VERBALIZE / DEMONSTRATE UNDERSTANDING OF PAIN CONTROL MEASURES BY 12/29/24. Goal Provider Goal - PATIENT/CAREGIVER WILL VERBALIZE/DEMONSTRATE UNDERSTANDING OF FALL RISK FACTORS AND IMPLEMENT STRATEGIES TO MINIMIZE FALL RISK. PATIENT/CAREGIVER WILL VERBALIZE/DEMONSTRATE AN ABILITY TO ADHERE TO FALL REDUCTION SELF-MANAGEMENT AND LIFE-STYLE CHANGES BY 12/29/24. Goal Provider Goal - PATIENT WILL IMPROVE HOUSEHOLD GAIT AND STAIRS FROM CGA AND MIN A TO INDEPENDENT AND SBA IN 8 WEEKS TO PROMOTE IMPROVED FUNCTIONAL MOBILITY PATIENT WILL IMPROVE TUG SCORE FROM 28 TO 20 SECONDS AND GAIT SPEED FRM 0.6 TO 0.9 M/S IN 8 WEEKS TO PROMOTE IMPROVED BALANCE INPUT INTEGRATION PATIENT WILL DEMO INDEP PERFORMANCE OF STANDING THEREX AND BALANCE ACTIVITY IN 4 WEEKS TO PROMOTE LE STABILITY AND ACTIVITY TOLERANCE PATIENT WILL IMPROVE HOUSEHOLD TRANSFERS FROM [facility] AND MIN A TO INDEPENDENT IN 4 WEEKS TO PROMOTE LE STABILITY AND ACTIVITY TOLERANCE PT LTG: PATIENT WILL MAINTAIN OXYGEN SATURATION WITHIN PHYSICIAN ORDERED PARAMETERS THROUGHOUT EPISODE OF CARE. PT LTG: PATIENT/CAREGIVER WILL DEMONSTRATE ADHERENCE TO FALL REDUCTION SELF-MANAGEMENT AND REDUCING FALL RISK FACTORS TO MINIMIZE FALL RISK BY END OF EPISODE PT LTG: PATIENT WILL BE INDEPENDENT WITH IMPLEMENTATION OF HEP WITHIN 4 WEEKS PT LTG: CAREGIVER WILL BE INDEPENDENT ASSISTING PATIENT TO COMPLETE HEP WITHIN 4 WEEKS PT GOAL: PATIENT WILL DEMONSTRATE UNDERSTANDING OF PAIN MANAGEMENT TECHNIQUES BY END OF EPISODE. Encounters Start Date/Time End Date/Time Encounter Type Admission Type Attending [facility] Care Department Encounter ID Discharge Date Discharge Status Discharge Condition Discharge Reason Percent Goals Met 2024-10-31 00:00:00 2024-12-29 00:00:00 Outpatient NEW ADMISSION [facility] [id number]
== END 2024-12-24 13:27 | disposition home or self-care (01) ==
LOC: HO.RHES 12:43
PROVIDERS: PCP Internal Medicine; Visit Provider Internal Medicine Rheumatology
DX: M17.11 Unilateral primary osteoarthritis, right knee (principal); M25.512 Pain in left shoulder; G89.29 Other chronic pain
CPT/HCPCS: 20610; 99213

== ENCOUNTER → 2024-12-24 12:43 | Outpatient (BNVA) | payer MEDICARE, SELFPAY | PROVIDERS: PCP Internal Medicine; Visit Provider Internal Medicine Rheumatology | DX: M25.512 Pain in left shoulder (principal); G89.29 Other chronic pain; M17.11 Unilateral primary osteoarthritis, right knee | CPT/HCPCS: 20610; 99212; J2003; J3301 ==